=== PATIENT | male | born 1985 | race Caucasian/White ===

== ENCOUNTER 2017-01-19 10:36 | Inpatient (IN) | payer MEDICAID, OTHER, SELFPAY ==
[2017-01-19] MEDS ORDERED: ACETAMINOPHEN TAB 500 MG TAB PO STA (11:08)
--- NOTE | 2017-01-19 11:08 | ED ---
General Adult HPI - General Chief complaint: Psychiatric Symptoms Stated complaint: mental health Time Seen by Provider: 01/19/17 10:45 Source: patient, RN notes reviewed Mode of arrival: wheelchair Limitations: no limitations - History of Present Illness Initial comments: This is a 31-year-old male who presents to the emergency department with his mother. Mother brought him in today because he is aching outlandish comments. Patient states she's the principal feeds patient states that the devil is after him and he is very animated in his explanations jumping off the bed and lying on the floor. Patient states he only came in to prove to his mother that he is not crazy and that he is indeed Manuel states. Patient states he's been cleaned and cleansed of all problems. Patient denies any physical complaints. Patient states he's to have neck pain and now he doesn't. Patient states he doesn't take the flu shot because he doesn't need it because he has been chosen. - Related Data Home Medications Medication Instructions Recorded Confirmed No Known Home Medications [No 01/19/17 01/19/17 Known Home Medications] Allergies Allergy/AdvReac Type Severity Reaction Status Date / Time No Known Allergies Allergy Verified 01/19/17 11:21 Review of Systems ROS Statement: Those systems with pertinent positive or pertinent negative responses have been documented in the HPI. ROS Other: All systems not noted in ROS Statement are negative. Past Medical History Past Medical History: No Reported History History of Any Multi-Drug Resistant Organisms: None Reported Past Surgical History: No Surgical Hx Reported Past Psychological History: No Psychological Hx Reported Smoking Status: Current every day smoker Past Alcohol Use History: Occasional Past Drug Use History: None Reported, Cocaine, Heroin, Marijuana General Exam - General Exam Comments Initial Comments: GENERAL: Patient is well-developed and well-nourished. Patient is nontoxic and well- hydrated and is in no acute distress. ENT: Neck is soft and supple. No significant lymphadenopathy is noted. Oropharynx is clear. Moist mucous membranes. Neck has full range of motion without eliciting any pain. There is no thyroid enlargement and no masses were felt. EYES: The sclera were anicteric and conjunctiva were pink and moist. Extraocular movements were intact and pupils were equal round and reactive to light. Eyelids were unremarkable. PULMONARY: Unlabored respirations. Good breath sounds bilaterally. No audible rales rhonchi or wheezing was noted. CARDIOVASCULAR: There is a regular rate and rhythm without any murmurs gallops or rubs. Femoral pulses are equal bilaterally ABDOMEN: Soft and nontender with normal bowel sounds. No palpable organomegaly was noted. There is no palpable pulsatile mass. SKIN: Skin is clear with no lesions or rashes and otherwise unremarkable. NEUROLOGIC: Patient is alert and oriented x3. Cranial nerves II through XII are grossly intact. Motor and sensory are also intact. Normal speech, volume and content. Symmetrical smile. MUSCULOSKELETAL: Normal extremities with adequate strength and full range of motion. No lower extremity swelling or edema. No calf tenderness. LYMPHATICS: No significant lymphadenopathy is noted PSYCHIATRIC: Patient is not suicidal or homicidal however he is psychotic and is very delusional at this time Limitations: no limitations Course Vital Signs 01/19/17 01/19/17 10:45 11:26 Temperature 100.8 F H 100.9 F H Pulse Rate 107 H Respiratory 18 Rate Blood Pressure 142/87 O2 Sat by Pulse 97 Oximetry Medical Decision Making - Lab Data Lab Results 01/19/17 01/19/17 Range/Units 11:00 11:05 Urine Opiates Screen Not Detected (NotDetected) Ur Oxycodone Screen Not Detected (NotDetected) Urine Methadone Screen Not Detected (NotDetected) Ur Propoxyphene Screen Not Detected (NotDetected) Ur Barbiturates Screen Not Detected (NotDetected) U Tricyclic Antidepress Not Detected (NotDetected) Ur Phencyclidine Scrn Not Detected (NotDetected) Ur Amphetamines Screen Not Detected (NotDetected) U Methamphetamines Scrn Not Detected (NotDetected) U Benzodiazepines Scrn Not Detected (NotDetected) Urine Cocaine Screen Not Detected (NotDetected) U Marijuana (THC) Screen Detected H (NotDetected) Influenza Type A RNA Not Detected (Not Detectd) Influenza Type B (PCR) Not Detected (Not Detectd) Disposition Clinical Impression: Acute psychosis Disposition: ADMITTED IP TO THIS [facility] Time of Disposition: 12:41
[2017-01-19] MEDS ORDERED: ACETAMINOPHEN TAB 325 MG TAB PO PRN (16:01)
[2017-01-19] MEDS ORDERED: ZIPRASIDONE 20 MG VIAL IM PRN (16:01)
[2017-01-19] MEDS ORDERED: MAG HYDROX/AL HYDROX/SIMETH 30 ML CUP PO PRN (16:01)
[2017-01-19] MEDS ORDERED: LORazepam 1 MG TAB PO PRN (16:06)
[2017-01-19] MEDS ORDERED: LORazepam 2 MG/ML SYRINGE IM PRN (16:06)
[2017-01-20 08:31] LABS: Basophils # (A) 0.1 k/uL (0-0.2); Basophils % (A) 1 %; CH 30.6; CHCM 33.8; Eosinophils # (A) 0.1 k/uL (0-0.7); Eosinophils % (A) 1 %; HCT 48.2 % (39.0-53.0); HDW 2.14; HGB 16.3 gm/dL (13.0-17.5); Luc # (Auto) 0.28; Luc % (Auto) 4; Lymphocytes # (A) 1.8 k/uL (1.0-4.8); Lymphocytes % (A) 27 %; MCH 30.6 pg (25.0-35.0); MCHC 33.7 g/dL (31.0-37.0); MCV 90.7 fL (80.0-100.0); Mean Platelet Volume 7.2; Monocytes # (A) 0.7 k/uL (0-1.0); Monocytes % (A) 10 %; Neutrophils # (A) 3.7 k/uL (1.3-7.7); Neutrophils % (A) 56 %; RBC 5.32 m/uL (4.30-5.90); RDW 12.5 % (11.5-15.5); WBC 6.6 k/uL (3.8-10.6); WBC (Perox) 6.22
[2017-01-20 08:39] LABS: ALT 29 U/L (21-72); AST 30 U/L (17-59); Alkaline Phosphatase 51 U/L (38-126); Anion Gap 9 mmol/L; Blood Urea Nitrogen 11 mg/dL (9-20); Carbon Dioxide 31 mmol/L (22-30); Chloride 103 mmol/L (98-107); Glucose 116 mg/dL (74-99); Non-African American GFR(MDRD) >60 (>60 ml/min/1.73 sqM); Potassium 5.5 mmol/L (3.5-5.1); Sodium 143 mmol/L (137-145); Total Bilirubin 1.4 mg/dL (0.2-1.3); Total Protein 7.7 g/dL (6.3-8.2)
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
--- NOTE | 2017-01-20 14:59 | P.CONS ---
History of Present Illness - Reason for Consult Consult date: 01/20/17 Medical management Requesting physician: Debby Sorensen - Chief Complaint Psychiatric symptoms - History of Present Illness Patient is a 31-year-old white male, patient of Dr. Chung in the outpatient setting, with no significant medical history. Patient was brought into the emergency department by his mother for irrational behavior. Urinalysis with evidence of marijuana. Potassium 5.5 on arrival. Patient did have a temperature of 100.8 in the emergency department with a heart rate of 107. Influenza A and negative. Patient was admitted to the psychiatric unit for evaluation and treatment. Upon examination, patient denies chills, shortness of breath, cough, chest pain, abdominal pain, numbness tingling, leg swelling, diarrhea or constipation, urinary problems. Patient denies musculoskeletal problems. No evidence of leukocytosis. Past Medical History Past Medical History: No Reported History Additional Past Medical History / Comment(s): History of heart palpitations. History of Any Multi-Drug Resistant Organisms: None Reported Past Surgical History: No Surgical Hx Reported Past Anesthesia/Blood Transfusion Reactions: No Reported Reaction Past Psychological History: No Psychological Hx Reported Smoking Status: Current some day smoker Past Alcohol Use History: Daily Additional Past Alcohol Use History / Comment(s): Pt. reports he drinks 2-3 beers a day. His last drink was 01/18/17. Past Drug Use History: Cocaine, Heroin, IV Drug Use, Marijuana, Methamphetamine , Opiates, Prescription Drug Abuse Additional Drug Use History / Comment(s): Pt. admits to occasional marijuana use. Pt. admits to a history of polysubstance abuse. - Past Family History Father History Unknown: Yes Mother Family Medical History: Diabetes Mellitus, Hyperlipidemia Brother(s) Additional Family Medical History / Comment(s): Drug addiction. Medications and Allergies Home Medications Medication Instructions Recorded Confirmed Type No Known Home Medications [No 01/19/17 01/19/17 History Known Home Medications] Allergies Allergy/AdvReac Type Severity Reaction Status Date / Time No Known Allergies Allergy Verified 01/19/17 16:49 Physical Exam Vitals: Vital Signs Temp Pulse Pulse Pulse Resp BP BP 01/20/17 06:15 98.2 F 83 16 139/67 01/19/17 16:31 97.9 F 77 20 01/19/17 16:00 98.8 F 91 16 127/72 BP Pulse Ox 01/20/17 06:15 01/19/17 16:31 115/73 97 01/19/17 16:00 98 Intake and Output 01/19/17 01/20/17 01/20/17 22:59 06:59 14:59 Other: Weight 65 kg GENERAL: Pt awake and alert, well-nourished, appears restless. HEAD: Atraumatic, normocephalic. EYES: Pupils equal and round. Sclera anicteric, conjunctiva are normal. ENT: Oropharynx clear without exudates. Moist mucous membranes. NECK:Normal range of motion, supple without lymphadenopathy. LUNGS: Breath sounds clear to auscultation bilaterally. No wheezes, rales, or rhonchi. HEART: Heart S1, S2, no S3 or S4. Regular rate and rhythm. No murmurs, rubs or gallops. ABDOMEN: Soft, nontender, nondistended, normoactive bowel sounds. No guarding, no rebound. EXTREMITIES: Palpable peripheral pulses. No edema. No calf tenderness. NEUROLOGICAL: Pt oriented x 3. No focal deficits. Strength and sensation grossly intact. PSYCH: Poor insight. Poor judgment. SKIN: Warm, dry, intact. Normal turgor. No rashes or lesions. Results CBC & Chem 7: 01/20/17 07:54 01/20/17 07:54 Labs: Abnormal Lab Results - Last 24 Hours (Table) 01/20/17 Range/Units 07:54 Potassium 5.5 H (3.5-5.1) mmol/L Carbon Dioxide 31 H (22-30) mmol/L Glucose 116 H (74-99) mg/dL Total Bilirubin 1.4 H (0.2-1.3) mg/dL Assessment and Plan Plan: Impression and plan: 1. Psychotic disorder. Patient has been admitted to the psychiatric unit for further evaluation under the care of a psychiatrist. 2. Hyperkalemia. We'll recheck potassium in a.m. 3. Marijuana use. 4. History of polysubstance abuse. 5. Nicotine dependence. Smoking cessation encouraged. 6. History of alcohol use with reported drinking of 2-3 beers a day. Will check BMP in a.m. Patient to follow-up with Dr. Chung in the office 1 week after discharge. The above impression and plan have been discussed and directed by Dr. Salas. Jerilyn HERBERT acting as scribe for Dr. Salas.
[2017-01-21 10:00] LABS: Anion Gap 13 mmol/L; Blood Urea Nitrogen 15 mg/dL (9-20); Calcium 9.9 mg/dL (8.4-10.2); Carbon Dioxide 29 mmol/L (22-30); Chloride 101 mmol/L (98-107); Glucose 108 mg/dL (74-99); Non-African American GFR(MDRD) >60 (>60 ml/min/1.73 sqM); Potassium 4.9 mmol/L (3.5-5.1); Sodium 143 mmol/L (137-145)
--- NOTE | 2017-01-21 11:30 | P.PN ---
Progress Note - Text SUBJECTIVE: I reviewed the medical record, interviewed Mr. Mac and discuss his treatment and treatment plan during team meeting. He presented to unit voluntarily with signs and symptoms consistent with hypomania. He denied problems or concerns. He stated he spoke with his mother and his girlfriend about his behavior and my recommendation for lithium. He alleges his mother is not concerned about his behavior and supports his decision not to accept a psychotropic medication. His understanding of his illness is that he was speaking too loud and not listening to other people particularly his mother and his girlfriend. OBJECTIVE: He presented as a casually groomed 31-year-old male who was pleasant on approach. He maintained eye contact and attended to the interview. He had no distinguishing features or prominent physical abnormalities. He had a bright facial expression. He was not agitated or restless; he did not gesticulate or act out his story as he had yesterday. His speech was spontaneous with slight increase in rhythm and amount. He did not demonstrate pressured speech or flight of ideas. His affect was bright, stable and appropriate. He denied suicidal ideation or wishes. He denied homicidal ideation. He denied feelings of hopelessness, helplessness or worthlessness. He did not express ideas reference or paranoid ideation. He was not religiously preoccupied and did not voluntarily talk about scientologist or anglican topics. His thinking was concrete but her associations were coherent and logical. He denied hallucinations and did not appear to be responding to internal stimuli. He slept 4.5 hours yesterday after receiving 1 mg of Ativan. He is demonstrated no agitation or episodes of behavioral dyscontrol. ASSESSMENT: He appears less hypomanic than on admission. He has no understanding of his mental illness or the need for treatment. He currently does not appear to meet judicial criteria for involuntary hospitalization. PLAN: Continue inpatient hospitalization determine if his apparent recovery is more than temporary. If his rolo/hypomania worsens to where he requires administration of IM medications, then asked his mother to complete a Petition and initiate the process for involuntary hospitalization. Otherwise, consider discharging him on 01/22/2017 with recommendation for follow-up at [facility].
--- NOTE | 2017-01-22 11:13 | P.DS ---
Providers Date of admission: 01/19/17 15:57 Attending physician: Romel Zepeda MD Consults: 01/19/17 16:01 Consult Physician Routine Consulting Provider: Demetrio Salas Jr Consult Reason/Comments: H & P and medical management Do you want consulting provider notified?: Yes Primary care physician: Stated None - Discharge Diagnosis(es) (1) Bipolar disorder, most recent episode hypomanic Current Visit: Yes Status: Acute (2) Opioid use disorder, moderate, in early remission Current Visit: Yes Status: Chronic Priority: Low (3) Hallucinogen abuse Current Visit: Yes Status: Chronic Priority: Medium Hospital Course: Mr. Mac is a 31-year-old single male who presented to the psychiatric unit voluntarily at the behest of his mother.. He was unable to provide a coherent reason for hospitalization. When I asked about the issues that brought him to the hospital he began talking about his relationship he had with a girlfriend. On further inquiry this incident occurred 7 years ago. He was lively and animated. On many occasions he acted out his story (he was talking about interaction with his girlfriend's or ex- girlfriend's children and began jumping up and down, squatting to the ground and eventually laid down on the ground). He gesticulated wildly with his hands. He was restless, grandiose and talked almost nonstop. He referred to "hearing voices" but when I asked question to clarify whether the experience represented true auditory hallucinations he backpedaled and alleged they were just thoughts. With his permission I called his mother. She stated that she slept last night for the first time in over a week. She stated they are a very spiritual family but he has taken spirituality to the extreme. "He takes after his father. ... I left (his father) when Caio was quite young." She believes that Caio's "mental illness came out" at the same age as his father's. "It's the same thing. ... He speaks in parables. He doesn't hear what others say." She was quite distressed and sobbed on the telephone. She stated that he has been calling her a liar and a thief. He told her that "the wolves" are coming to get her. She stated that his friends have been calling her concerned about his behavior. "He comes home and freaks out." He leaves her house then goes to his girlfriend's. She stated that he "freaked out" at his girlfriend's friend' s house. I asked her what she meant by "freaks out" and she talked about his restlessness, paranoia and religiosity. She stated that he's been talking about "devils" and "minions". He believes that demons are controlling her mind. He talks about being "thrown to the demons." His mother stated that he had not slept for 4 days. She noticed a change in his behavior about 2 weeks prior to admission. She talked about having become involved with drugs and believes that the drugs "brought it out in him." He accused her of stealing his drugs. She believes she was using LSD "blotter acid". After my conversation with his mother we met to talk about beginning a psychotropic medication. He became distressed and insists that they come to his room and "read what is on the wall. .. I did not put it there but I want you to read it " I accompanied him to his room and around the mirror someone had written their feelings about having been "forced" to take an injection of medication. He stated that he will not be "forced" to take medications. I explained that only a airline managerial supervisor's order would allow us to administer medication against a patient's wishes. He replied "just do it. ... Let's go to court." He stated that he has used "every drug imaginable" including alcohol, marijuana , LSD, mushrooms, opioid pain medications, cocaine, crack cocaine, methamphetamine and dextromethorphan. He has insufflated and injected heroin IV. He alleged last time he used heroin was "a while ago". His urine drug screen was positive only for marijuana. He received substance abuse treatment while he was in [facility]. We admitted him voluntarily to the psychiatric unit under the care of this creative services writer. We provided a biopsychosocial assessment. The project consultant jigger crown pouncing machine operator completed the initial physical exam and medical history. The jigger crown pouncing machine operator diagnosis included hyperkalemia, marijuana abuse, polysubstance abuse, nicotine dependence and history of alcohol use. The admission potassium was 5.5 and repeat the following day was 4.9. He was hyperverbal throughout the hospitalization. He showed decreased need for sleep. He participated appropriately in therapeutic groups and activity. He did not have episodes of behavioral dyscontrol requiring administration of IM or by mouth medications. We discussed treatment with a mood stabilizing medication such as lithium or second generation antipsychotic. He refused to consider a psychotropic medication. He did not meet criteria for involuntary hospitalization. We discharged from with recommendation of follow-up with [facility]. Patient Condition at Discharge: Stable Plan - Discharge Summary Discharge Medication List No Known Home Medications [No Known Home Medications] 01/19/17 [History] Follow up Appointment(s)/Referral(s): None,Stated [Primary Care Provider] - 1-2 days Discharge Disposition: HOME SELF-CARE
[2017-01-23] MEDS: MAGNESIUM HYDROXIDE 2,400 MG/10 ML CUP PO PRN (00:56)
--- NOTE | 2017-01-23 11:10 | P.PN ---
Progress Note - Text SUBJECTIVE: I reviewed the medical record, interviewed Mr. Mac and discuss his treatment and treatment plan during team meeting. He presented to unit voluntarily with signs and symptoms consistent with hypomania. He refused to leave the unit yesterday evening.. He told staff that he "did not feel safe"at home. Today he stated that he feels much better and is ready to "go home". I asked why he did not feel safe yesterday. He talked about needing to have his own place to live. He was concerned about "urges inside me ". On further questioning he talked about his friend's girlfriend. He believes that his friend's girlfriend is more attracted to him that his friend etc. He denied having thoughts of or suicide. He denied homicidal thoughts. He denied experiencing auditory or visual hallucinations. He denied feeling suspicious or paranoid. He denied ideas of reference, thought insertion, thought broadcasting or thought control. We once again talked about treatment of his bipolar illness. He again declined my recommendations and was not in reviewing the patient information sheets on options such as lithium, Depakote, Lamictal, olanzapine or lurasidone. OBJECTIVE: He presented as a casually groomed 31-year-old male who was pleasant on approach. He maintained eye contact and attended to the interview. He had no distinguishing features or prominent physical abnormalities. He had a bright facial expression. He was not agitated or restless; he did not gesticulate or act out his story as he had yesterday. His speech was spontaneous with slight increase in rhythm and amount. He did not demonstrate pressured speech or flight of ideas. His affect was bright, stable and appropriate. He denied feelings of hopelessness, helplessness or worthlessness. He did not express ideas reference or paranoid ideation. He was not religiously preoccupied and did not voluntarily talk about spiritism or alevism topics. His thinking was concrete but her associations were coherent and logical. He denied hallucinations and did not appear to be responding to internal stimuli. ASSESSMENT: He appears less hypomanic than on admission. He has no understanding of his mental illness or the need for treatment. He currently does not meet judicial criteria for involuntary hospitalization. PLAN: Discharge him home with follow-up at [facility].
--- NOTE | 2017-01-24 09:36 | P.PN ---
Progress Note - Text Interval history: The patient is found in the hallway he follows me to an interview room. The patient was admitted with symptoms of rolo with psychosis. The patient is refusing medication in the form of a mood stabilizer. A petition and initial clinical certificate has been completed. In the session the patient is clearly demonstrating symptoms of rolo he also verbalizes spontaneously delusional beliefs. He has reported auditory hallucinations while here. He states IM suggesting he be medicated to "Zombie- fy him and cover up the truth". Numerous times throughout the session he describes coincidences that he notices any believes that these are divine intervention. Oftentimes in our session he describes things in a jewish context. Initially during our session he is against using medication then he seemed to be agreeable to trialing Depakote and then abruptly stated "I want to talk to the car head liner installer". He is also demanding to see a asbestos wire finisher immediately. Mental status exam: The patient is a thin disheveled male appearing his stated age. His hair is not combed, he does have a mild body odor. He is dressed in a hospital gown. He has ongoing pressured speech he demonstrates tangential thinking with evidence of flight of ideas. He gets up several times during the session and paces about the room he demonstrates increased psychomotor activity. Oftentimes he demonstrates a euphoric affect with exaggerated smiling and laughter. He has been endorsing auditory hallucinations. He is endorsing no command auditory hallucinations. He describes no acute suicidal or homicidal ideation. He is trying to minimize statements he is made during the admission and current symptoms. Insight and judgment are impaired. He is not demonstrating consistent decision making and subsequent judgment. Plan: The patient does require continued hospitalization. I will initiate Depakote ER 1000 mg at bedtime. I did describe to the patient the potential benefits and side effects of this medication. We will monitor compliance. I will complete a clinical certificate. Because of the presence of psychotic symptoms I would characterize his symptoms as being manic. He may have a chronic history of experiencing hallucinations but there are active paranoid and persecutory thoughts. He is encouraged to participate in the milieu we will monitor him for safety.
[2017-01-24] MEDS: DIVALPROEX ER 500 MG TAB.ER.24H PO SCH (21:34)
--- NOTE | 2017-01-25 12:13 | P.PN ---
Progress Note - Text Interval history: The patient is found in group he follows me to an interview room. He did take the Depakote ER 1000 mg at bedtime last evening. He reports he slept throughout the night approximately getting 6 hours. Staff recorded he slept 4 hours. He is reporting no side effects from the Depakote yet. He did not feel overly tired this morning. He reports having a positive visit with his mother last evening. He reviewed the court paperwork and tried to address statements that we made and offer some rationalization for each. He does continue to be religiously preoccupied in that most statements he makes are made in a spiritism context. He tries to provide a biblical context for what he meant when he talked about murder. Mental status exam: The patient is alert he is dressed in his own clothing he is wearing a hooded sweatshirt with his amos up. Eye contact is appropriate affect remains euphoric. He is cooperative. Speech is mildly pressured. Thought content is overly inclusive when trying to make a point. He is still circumstantial he can be tangential at times. He refers to having paranoid thoughts stating they aren't always there but does not specify further. No verbal or physical aggressiveness is demonstrated. He is reporting no suicidal or homicidal ideation intent or plan. Insight and judgment impaired. Plan: The patient is encouraged to continue complying with the Depakote ER. He is encouraged to continue attending groups we will monitor him for safety. Vital signs reviewed. Dr. Zepeda will resume care of this patient starting tomorrow.
[2017-01-25] MEDS: DIVALPROEX ER 500 MG TAB.ER.24H PO SCH (21:13)
--- NOTE | 2017-01-26 15:36 | P.PN ---
Progress Note - Text SUBJECTIVE: I reviewed the medical record, interviewed Mr. Mac and discuss his treatment and treatment plan during team meeting. He stated that he agreed to take the Depakote yesterday because he did not want to "disappointed" the doctor. He stated that he "pretended" to take the dose yesterday then "spitted it out of the toilet." He refused to take the dose this morning. He again stated that he does not require psychiatric medications. He talked about his brother who had been prescribed psychotropic medications; "no medications help my brother." I attempted to engage him in a discussion about the benefits of a mood stabilizer such as Depakote. His response was that he is happy with his current "happy and bubbly" self. He wishes to proceed with a probate hearing to demonstrate to the per diem physical therapist that he does not require treatment with psychiatric medications. OBJECTIVE: He presented as a disheveled appearing 31-year-old male who was pleasant on approach. He maintained eye contact and appeared to attend to interview. He had a bright facial expression. He showed slight indicate increase in psychomotor activity but no abnormal movements. Speech was spontaneous and pressured. His affect was elevated and at times inappropriate. He denied thoughts of self-harm. He denied homicidal ideation. He denied depressive cognitions. He did not express inflated self-esteem or self worth. He was religiously preoccupied but did not express religiously themed or paranoid delusional beliefs. His thinking was abstract. He did not demonstrate clang associations or neologisms. He denied hallucinations and did not appear to be responding to internal stimuli. ASSESSMENT: He appears moderately to severely mentally ill and minimally change from admission. He continues to show signs and symptoms of hypomania. PLAN: Continue with inpatient psychiatric hospitalization due to persistent symptoms of hypomania and refusal of psychiatric treatment. Petition and supporting documents admitted to probate court. Probate hearing pending. Encouraged continued participation in therapeutic groups and activities. Evaluate clinical status and response to treatment daily basis. Continue to encourage a trial of a mood stabilizing medication.
[2017-01-26] MEDS: DIVALPROEX ER 500 MG TAB.ER.24H PO SCH (21:29)
[2017-01-27 11:30] LABS: Amorphous Sediment,Urine Moderate /hpf; Appearance,Urine Turbid (Clear); Bilirubin,Urine Negative (Negative); Glucose,Urine (UA) Negative (Negative); Ketones,Urine Negative (Negative); Leukocyte Esterase,Urine Negative (Negative); Nitrite,Urine Negative (Negative); Particle Count 27252; Protein,Urine Trace (Negative); Specific Gravity,Urine 1.024 (1.001-1.035); UA Billing (MACRO vs. MICRO) MICRO; Urobilinogen,Urine <2.0 mg/dL (<2.0)
--- NOTE | 2017-01-27 14:33 | P.PN ---
Progress Note - Text SUBJECTIVE: I reviewed the medical record, interviewed Mr. Mac and discuss his treatment and treatment plan during team meeting. He met with his court appointed sports attorney and declined to deferr the probate hearing. He talked about his use of LSD. Apparently, he was using LSD heavily for about 2 weeks prior to admission. He talked about using anywhere from 5 to 11 "hits" of LSD over a two day period then once to twice per week until his admission. He asked if I thought the problems that he had with his mood and thinking might be related to his LSD use. He alleged that he had used LSD one other time when he was a senior in high school. He denied feeling paranoid or suspicious. He denied psychotic symptoms such as auditory or visual hallucinations, ideas reference, thought insertion, thought broadcasting or thought control. He continues to denied need for psychotropic medications again stating "they never helped my brother." OBJECTIVE: He presented as a slightly disheveled appearing 31-year-old male who was pleasant on approach. He maintained eye contact and attended to the interview. He had a bright facial expression. He showed no abnormality of psychomotor activity. He was not agitated or restless. His speech was spontaneous with slight increase in rate and rhythm. His speech was pressured but he did not display flight of ideas. He denied suicidal ideation or wishes. He denied depressive cognitions such as hopelessness, helplessness and worthlessness. He did not express ideas reference or paranoid ideation. His thinking was abstract and her associations was coherent and logical. He denied hallucinations and did not appear to be responding to internal stimuli. ASSESSMENT: He appears to be moderately mentally ill and moderately improved from admission. PLAN: Continue inpatient psychiatric hospitalization pending the probate hearing. Continue to talk about treatment with a mood stabilizing medication. Encourage participation in therapeutic groups and activities. Evaluate clinical status response to treatment daily basis.
[2017-01-27] MEDS: DIVALPROEX ER 500 MG TAB.ER.24H PO SCH (21:23)
--- NOTE | 2017-01-28 14:15 | P.PN ---
Progress Note - Text SUBJECTIVE: I reviewed the medical record, interviewed Mr. Mac and discuss his treatment and treatment plan during team meeting. He brought a copy of his Petition and Clinical Certificates to the interview. He reviewed the documents in detail commenting and critiquing the statements on the documents. He maintains that he was not doing well when he initially presented to the unit but recovered. He continues to deny the need for mood stabilizing medications. He denied feeling paranoid or suspicious. He denied psychotic symptoms such as auditory or visual hallucinations, ideas reference, thought insertion, thought broadcasting or thought control. He continues to denied need for psychotropic medications again stating "they never helped my brother." OBJECTIVE: He presented as a slightly disheveled appearing 31-year-old male who was pleasant on approach. He maintained eye contact and attended to the interview. He had a bright almost alienated facial expression. He showed no abnormality of psychomotor activity. He was not agitated or restless. His speech was spontaneous with slight increase in rate and rhythm. His speech was pressured but he did not display flight of ideas. He denied suicidal ideation or wishes. He denied depressive cognitions such as hopelessness, helplessness and worthlessness. He did not express ideas reference or paranoid ideation. His thinking was abstract and her associations was coherent and logical. He denied hallucinations and did not appear to be responding to internal stimuli. ASSESSMENT: He appears to be moderately mentally ill and moderately improved from admission. PLAN: Continue inpatient psychiatric hospitalization pending the probate hearing. Continue to talk about treatment with a mood stabilizing medication. Encourage participation in therapeutic groups and activities. Evaluate clinical status response to treatment daily basis.
[2017-01-28] MEDS: DIVALPROEX ER 500 MG TAB.ER.24H PO SCH (21:47)
--- NOTE | 2017-01-29 12:51 | P.PN ---
Progress Note - Text SUBJECTIVE: I reviewed the medical record, interviewed Mr. Mac and discuss his treatment and treatment plan during team meeting. He came to my office several times during the day with complaints related to perceived violation of his rights. On the first visit he reviewed page by page the Recipient Right's Booklet and highlighted sections where he believes his rights have been violated. On another visit he demanded a copy of his medical records and a different visit he demanded that his mother be allowed to visit with him at any time because she is concerned about his legal status. He stated that he will be demanding a jury trial. OBJECTIVE: He presented as a slightly disheveled appearing 31-year-old male who was angry and irritable. He maintained eye contact and attended to the interview. He had a angry facial expression. He showed no abnormality of psychomotor activity. He was not agitated or restless. His speech was pressured but he did not display flight of ideas. He denied suicidal ideation or wishes. He denied depressive cognitions such as hopelessness, helplessness and worthlessness. He was suspicious and perseverated on the belief that his rights have been violated. His thinking was abstract and her associations was coherent and logical. He denied hallucinations and did not appear to be responding to internal stimuli. ASSESSMENT: He appears to be severely mentally ill and minimally improved from admission. PLAN: Continue inpatient psychiatric hospitalization pending the probate hearing. He continues to deny the need for psychiatric treatment. Continue to talk about treatment with a mood stabilizing medication. Encourage participation in therapeutic groups and activities. Evaluate clinical status response to treatment daily basis.
[2017-01-29] MEDS: DIVALPROEX ER 500 MG TAB.ER.24H PO SCH (20:16)
--- NOTE | 2017-01-30 12:42 | P.PN ---
Progress Note - Text SUBJECTIVE: I reviewed the medical record, interviewed Mr. Mac and discuss his treatment and treatment plan during team meeting. He denied problems other than "you forcing me to take hard drugs." He is angry at his child protective investigator for not informing of his rights including a second opinion and a jury trial. He would not discuss treatment of his rolo. OBJECTIVE: He presented as a slightly disheveled appearing 31-year-old male who was angry and irritable. He maintained eye contact and attended to the interview. He had a bright facial expression. He showed no abnormality of psychomotor activity. He was not agitated or restless. His speech was pressured but he did not display flight of ideas. He denied suicidal ideation or wishes. He denied depressive cognitions such as hopelessness, helplessness and worthlessness. He was suspicious and perseverated on the belief that his rights have been violated. His thinking was abstract and her associations was coherent and logical. He denied hallucinations and did not appear to be responding to internal stimuli. ASSESSMENT: He appears to be severely mentally ill and minimally improved from admission. PLAN: Continue inpatient psychiatric hospitalization pending the probate hearing. He continues to deny the need for psychiatric treatment. Continue to talk about treatment with a mood stabilizing medication. Encourage participation in therapeutic groups and activities. Evaluate clinical status response to treatment daily basis.
[2017-01-30] MEDS: MAGNESIUM HYDROXIDE 2,400 MG/10 ML CUP PO PRN (18:23)
[2017-01-30] MEDS: DIVALPROEX ER 500 MG TAB.ER.24H PO SCH (20:16)
--- NOTE | 2017-01-31 15:29 | P.PN ---
Progress Note - Text Interval history: Patient seen in [facility] today for Dr. Zepeda. He makes reference to not needing and not taking psychotropic medications. He is currently being prescribed Depakote ER. He brings in his treatment plan which he goes over some of as well as goes over multiple concerns of his rights. Makes reference to a court hearing this coming Thursday. He makes reference to concerns about protective services being called due to concerns of the care of children in the home. Mental status exam: He is alert and cooperative with the interview. His speech is fluent and rapid with a pressured quality. He denies any thoughts of harm to self or others. He does not verbalize any hallucinations. He does not show any significant degree of agitation. Makes several references to medications being forced on him and concerns about his rights. He describes that his mood was doing well until having concerns about protective services being involved. Plan: We'll continue to cover this patient for Dr. Zepeda through the weekend. Discussed with him that we can monitor closely on the inpatient unit regarding any side effects of his prescribed psychotropic medication. He does not seem interested at this time in terms of starting the medication. We'll continue to monitor for any psychiatric symptoms and monitor for any compliance of medication.
[2017-01-31] MEDS: DIVALPROEX ER 500 MG TAB.ER.24H PO SCH (21:01)
[2017-02-01] MEDS: MAGNESIUM HYDROXIDE 2,400 MG/10 ML CUP PO PRN (15:11)
--- NOTE | 2017-02-01 16:48 | P.PN ---
Progress Note - Text Interval history: Patient is seen in cross coverage today again for Dr. Zepeda. He reports that he slept well last night and he is eating well. He does describe some issues with constipation, he has been taking self milk of magnesia. I did discuss with him the option of having the medical follow back up regarding issues of constipation and he describes that he will monitor it and perhaps take the milk of magnesia more consistently if he is having any difficulties. He describes today that he is no longer concerned about the issue regarding protective services. He states that these are not his children and he made a call yesterday and that the children he was referring to are being taken care of. Mental status exam: He is alert and cooperative with the interview. His speech is fluent, he seems to describe his mood is doing well. His affect does show range. He denies any thoughts of harm to self or others. He denies any hallucinations. She does not show any agitation. Plan: Dr. Zepeda will resume care this patient starting tomorrow. Monitor for any medication compliance, he does have upcoming court hearing regarding treatment.
[2017-02-01] MEDS: DIVALPROEX ER 500 MG TAB.ER.24H PO SCH (20:37)
--- NOTE | 2017-02-02 12:57 | P.PN ---
Progress Note - Text SUBJECTIVE: I reviewed the medical record, interviewed Mr. Mac and discuss his treatment and treatment plan during team meeting. He refused to sit for the interview. He accused me of "abusing him" and not "respecting" his rights. He stated there is "nothing for us to talk about" and left the office. OBJECTIVE: He presented as a slightly disheveled appearing 31-year-old male who was angry and irritable. He maintained eye contact and attended to the interview. He had a angry facial expression. He showed no abnormality of psychomotor activity. He would not sit for the interview. His speech was pressured but he did not display flight of ideas. He denied suicidal ideation or wishes. He denied depressive cognitions such as hopelessness, helplessness and worthlessness. He was suspicious and perseverated on the belief that his rights have been violated. His thinking was abstract and her associations was coherent and logical. He denied hallucinations and did not appear to be responding to internal stimuli. He slept 7 hours last night. He continues to refuse the Depakote. ASSESSMENT: He is angry and irritable. Overall, he appears to be moderately mentally ill and minimally improved from admission. PLAN: Continue inpatient psychiatric hospitalization pending the probate hearing. He continues to deny the need for psychiatric treatment. Continue to talk about treatment with a mood stabilizing medication. Encourage participation in therapeutic groups and activities. Evaluate clinical status response to treatment daily basis.
[2017-02-02] MEDS: DIVALPROEX ER 500 MG TAB.ER.24H PO SCH (19:25)
--- NOTE | 2017-02-03 15:22 | P.PN ---
Progress Note - Text SUBJECTIVE: I reviewed the medical record, interviewed Mr. Mac and discuss his treatment and treatment plan during team meeting. He refused to sit for the interview. OBJECTIVE: He presented as a slightly disheveled appearing 31-year-old male who was angry and irritable. He maintained eye contact and attended to the interview. He had a angry facial expression. He showed no abnormality of psychomotor activity. He would not sit for the interview. His speech was pressured but he did not display flight of ideas. He denied suicidal ideation or wishes. He denied depressive cognitions such as hopelessness, helplessness and worthlessness. He was suspicious and perseverated on the belief that his rights have been violated. His thinking was abstract and her associations was coherent and logical. He denied hallucinations and did not appear to be responding to internal stimuli. On his goal sheet this morning he broke that he was having violent thoughts towards his psychiatrist. He added that he would not act on these thoughts. He continues to refuse the Depakote. ASSESSMENT: He means angry and irritable. Overall, he appears to be moderately mentally ill and minimally improved from admission. PLAN: His court hearing is at 3:30 PM this afternoon; disposition pending a probate hearing. He continues to deny the need for psychiatric treatment. Continue to talk about treatment with a mood stabilizing medication. Encourage participation in therapeutic groups and activities. Evaluate clinical status response to treatment daily basis.
[2017-02-03] MEDS: DIVALPROEX ER 500 MG TAB.ER.24H PO SCH (21:30)
--- NOTE | 2017-02-04 14:11 | P.PN ---
Progress Note - Text SUBJECTIVE: I reviewed the medical record, interviewed Mr. Mac and discuss his treatment and treatment plan during team meeting. Earlier today he greeted me and addressed me as "Dr. Tariq" (apparently referring to the infamous [facility] physician. Moses Johns). He was euphoric and hyperverbal. He talked non- stop about his treatment plan item by item and page by page. He had a counter argument for every problem identified in the plan. We talked about his court hearing yesterday and his request for independent examination. He understands that his hearing was postponed to March 03 and that he will remain in the hospital. He replied that he has no problem remaining in the hospital. He enjoys himself here and if he had the opportunity he would remain here. "Why leave here? I don't have to work. I don't have to shop. I don't have to clean her help out around the house. ... 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 He talked constantly. He showed no abnormality of psychomotor activity. His speech was pressured and he displayed flight of ideas. He denied suicidal ideation or wishes. He denied feeling hopelessness, helplessness and worthlessness. He was not suspicious as perseverated about his treatment plan. His thinking was abstract but is thinking was not logical. He denied hallucinations and did not appear to be responding to internal stimuli. ASSESSMENT: He having signs and symptoms of hypomania. He has no insight or understanding of his illness or need for treatment. Overall, he appears to be moderately mentally ill and minimally improved from admission. PLAN: Continue inpatient hospitalization until his independent evaluation and court hearing. Continue to talk about treatment with a mood stabilizing medication. Encourage participation in therapeutic groups and activities. Evaluate clinical status response to treatment daily basis.
[2017-02-04] MEDS: DIVALPROEX ER 500 MG TAB.ER.24H PO SCH (21:10)
--- NOTE | 2017-02-05 12:00 | P.PN ---
Progress Note - Text SUBJECTIVE: I reviewed the medical record, interviewed Mr. Mac and discuss his treatment and treatment plan during team meeting. He complained that his court appointed personal injury attorney has not availed herself as much as she would like. He also complained that his rights have been violated. OBJECTIVE: He presented as a casually groomed 31-year-old male who was not euphoric. He showed no abnormality of psychomotor activity. His speech was not pressured and he did not display flight of ideas. His speech had normal rate, rhythm and volume. He denied suicidal ideation or wishes. His affect was slightly blunted but stable and appropriate. He denied feeling hopelessness, helplessness and worthlessness. He was not suspicious. He did not perseverate about his treatment plan for the violation of his "rights ". His thinking was abstract but is thinking was not logical. He denied hallucinations and did not appear to be responding to internal stimuli. ASSESSMENT: He did not appear to be hypomania. However he has no insight or understanding of his illness or need for treatment. Overall, he appears to be minimally mentally ill and much improved from admission. PLAN: Continue inpatient hospitalization until his independent evaluation and court hearing. Continue to talk about treatment with a mood stabilizing medication. Encourage participation in therapeutic groups and activities. Evaluate clinical status response to treatment daily basis.
[2017-02-05] MEDS: DIVALPROEX ER 500 MG TAB.ER.24H PO SCH (21:13)
--- NOTE | 2017-02-06 11:28 | P.PN ---
Progress Note - Text SUBJECTIVE: I reviewed the medical record, interviewed Mr. Mac and discuss his treatment and treatment plan during team meeting. "I apologize for my behavior. I don't mean to offend you. I've been feeling irritable. ... I still think you violated my rights." He is planning to call the psychologist for an independent evaluation as his attorney general requested during his probate hearing. OBJECTIVE: He presented as a casually groomed 31-year-old male who was euphoric. He showed no abnormality of psychomotor activity. His speech was not pressured and he did not display flight of ideas. His speech had increased rate, rhythm and volume. He denied suicidal ideation or wishes. His affect was elevated but stable and appropriate. He denied feeling hopelessness, helplessness and worthlessness. He was not suspicious. He did not perseverate about his treatment plan for the violation of his "rights". His thinking was abstract but is thinking was logical, coherent and goal directed. He denied hallucinations and did not appear to be responding to internal stimuli. ASSESSMENT: He appears moderately mentally ill and much improved from admission. However he has no insight or understanding of his illness or need for treatment. PLAN: Continue inpatient hospitalization until his independent evaluation and court hearing. Continue to talk about treatment with a mood stabilizing medication. Encourage participation in therapeutic groups and activities. Evaluate clinical status response to treatment daily basis.
[2017-02-06] MEDS: DIVALPROEX ER 500 MG TAB.ER.24H PO SCH (21:09)
--- NOTE | 2017-02-07 09:32 | P.PN ---
Progress Note - Text Interval history: Patient seen in cross coverage today for Dr. Zepeda. He makes reference to not needing and not taking psychotropic medications. He brings in his treatment plan which he goes over some of as well as goes over multiple concerns of his rights. Makes reference to court hearing and said "It not fair to go against two MD and one Master degree SW ,they testified that I am insane and need medication",patient said that he asked for independent evaluation . He was voodoo preoccupied and talked in detail about "G[employer] THE LAW",denies any current hallucination or idea of references,denies any sleeping or appetite problems Mental status exam: He is alert and cooperative with the interview. His speech is fluent and rapid with a pressured quality,circumstantial ,and some loose of association He denies any thoughts of harm to self or others. He does not verbalize any hallucinations. He does not show agitation Makes several references to medications being forced on him and concerns about his rights. Plan: We'll continue to cover this patient for Dr. Zepeda through the weekend. Discussed with him that we can monitor closely on the inpatient unit regarding medication. He does not seem interested at this time in terms of starting the medication. We'll continue to monitor for any psychiatric symptoms and monitor for any compliance of medication.
[2017-02-07] MEDS: DIVALPROEX ER 500 MG TAB.ER.24H PO SCH (21:26)
--- NOTE | 2017-02-08 12:40 | P.PN ---
Progress Note - Text Interval history: Patient seen in [facility] today for Dr. Zepeda. He makes reference to not needing and not taking psychotropic medications. He denies any current hallucination or idea of references,denies any sleeping or appetite problems.He stated that he met with Risa yesterday "It is my first time ,I am trying to ask her to be my witness when I go to hearing ,she does believe in God and in Miracle",when I asked him if she does not beleive in medication ,he replied "I need to find out this ,she will visit me again" Patient shared with me a drawing saying that "I am trying to spend constructive time ,it is good way to relax" Mental status exam: He is alert and cooperative with the interview. His speech is fluent and rapid with a pressured quality,circumstantial ,and some loose of association He denies any thoughts of harm to self or others. He does not verbalize any hallucinations. He does not show agitation Makes several references to medications being forced on him and concerns about his rights. Plan:. Discussed with him that we can monitor closely on the inpatient unit regarding medication. He does not seem interested at this time in terms of starting the medication. We'll continue to monitor for any psychiatric symptoms and monitor for any compliance of medication.
[2017-02-08] MEDS: DIVALPROEX ER 500 MG TAB.ER.24H PO SCH (21:08)
--- NOTE | 2017-02-09 14:40 | P.PN ---
Progress Note - Text SUBJECTIVE: I reviewed the medical record, interviewed Mr. Mac and discuss his treatment and treatment plan during team meeting. He denied problems or concerns. He stated that he slept well. He was unable to reach the psychologist to schedule an appointment for an independent mental health assessment. He stated that his claim attorney has a friend who was a psychiatrist and may be able to arrange an evaluation. OBJECTIVE: He presented as a casually groomed 31-year-old male who was euphoric. He showed no abnormality of psychomotor activity. His speech was not pressured and he did not display flight of ideas. His speech had increased rate, rhythm and volume. He denied suicidal ideation or wishes. His affect was elevated but stable and appropriate. He denied feeling hopelessness, helplessness and worthlessness. He was not suspicious. He did not perseverate about his treatment plan for the violation of his "rights". His thinking was abstract but is thinking was logical, coherent and goal directed. He denied hallucinations and did not appear to be responding to internal stimuli. ASSESSMENT: He appears moderately mentally ill and much improved from admission. However he has no insight or understanding of his illness or need for treatment. PLAN: Continue inpatient hospitalization until his independent evaluation and court hearing. Continue to talk about treatment with a mood stabilizing medication. Encourage participation in therapeutic groups and activities. Evaluate clinical status response to treatment daily basis.
[2017-02-09] MEDS: DIVALPROEX ER 500 MG TAB.ER.24H PO SCH (20:14)
--- NOTE | 2017-02-10 11:49 | P.PN ---
Progress Note - Text SUBJECTIVE: I reviewed the medical record, interviewed Mr. Mac and discuss his treatment and treatment plan during team meeting. He denied problems or concerns. He stated that he slept well. He has not yet scheduled an appointment for an independent mental health assessment as ordered by the court. He has an contract attorney (not authorized by the courts) who is purportedly assisting him with obtaining an independent mental health assessment. OBJECTIVE: He presented as a casually groomed 31-year-old male who was euphoric. He showed no abnormality of psychomotor activity. His speech was not pressured and he did not display flight of ideas. His speech had increased rate, rhythm and volume. He denied suicidal ideation or wishes. His affect was elevated but stable and appropriate. He denied feeling hopelessness, helplessness and worthlessness. He was not suspicious. He did not perseverate about his treatment plan for the violation of his "rights". His thinking was abstract but is thinking was logical, coherent and goal directed. He denied hallucinations and did not appear to be responding to internal stimuli. He slept 4 hours last night and 2 hours night before. ASSESSMENT: He appears moderately mentally ill and improved from admission. However he has no insight or understanding of his illness or need for treatment. PLAN: Continue inpatient hospitalization until his independent evaluation and court hearing. Continue to talk about treatment with a mood stabilizing medication. Encourage participation in therapeutic groups and activities. Evaluate clinical status response to treatment daily basis.
[2017-02-10] MEDS: DIVALPROEX ER 500 MG TAB.ER.24H PO SCH (21:04)
--- NOTE | 2017-02-11 11:57 | P.PN ---
Progress Note - Text SUBJECTIVE: I reviewed the medical record, interviewed Mr. Mac and discuss his treatment and treatment plan during team meeting. Jan stated that he does not wish to speak with me is I would use what he says against him. 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 He does not yet have an appointment for his independent evaluation. OBJECTIVE: He presented as a casually groomed 31-year-old male who was euphoric. He showed no abnormality of psychomotor activity. His speech was slightly pressured and he did not display flight of ideas. His speech had increased rate, rhythm and volume. He denied suicidal ideation or wishes. His affect was dysphoric but stable and appropriate. He denied feeling hopelessness, helplessness and worthlessness. He was not suspicious. He did not perseverate about his treatment plan for the violation of his "rights ". His thinking was abstract but is thinking was logical, coherent and goal directed. He denied hallucinations and did not appear to be responding to internal stimuli. He slept 7 hours last night . ASSESSMENT: He appears moderately mentally ill and improved from admission. However he has no insight or understanding of his illness or need for treatment. PLAN: Continue inpatient hospitalization until his independent evaluation and court hearing. Continue to talk about treatment with a mood stabilizing medication. Encourage participation in therapeutic groups and activities. Evaluate clinical status response to treatment daily basis.
[2017-02-11] MEDS: DIVALPROEX ER 500 MG TAB.ER.24H PO SCH (20:33)
--- NOTE | 2017-02-12 13:27 | P.PN ---
Progress Note - Text SUBJECTIVE: I reviewed the medical record, interviewed Mr. Mac and discuss his treatment and treatment plan during team meeting. He stated that he met with his deputy county attorney this morning and his deputy county attorney plans asked what the psychiatrist at [facility] to perform the independent evaluation. He continues to deny the need for psychiatric treatment. OBJECTIVE: He presented as a casually groomed 31-year-old male who was euphoric. He showed no abnormality of psychomotor activity. His speech was slightly pressured and he did not display flight of ideas. His speech had increased rate, rhythm and volume. He denied suicidal ideation or wishes. His affect was dysphoric but stable and appropriate. He denied feeling hopelessness, helplessness and worthlessness. He was not suspicious. He did not perseverate about his treatment plan for the violation of his "rights ". His thinking was abstract but is thinking was logical, coherent and goal directed. He denied hallucinations and did not appear to be responding to internal stimuli. He slept 5 hours last night . ASSESSMENT: He appears moderately mentally ill and improved from admission. However he has no insight or understanding of his illness or need for treatment. PLAN: Continue inpatient hospitalization until his independent evaluation and court hearing. Continue to talk about treatment with a mood stabilizing medication. Encourage participation in therapeutic groups and activities. Evaluate clinical status response to treatment daily basis.
[2017-02-12] MEDS: DIVALPROEX ER 500 MG TAB.ER.24H PO SCH (20:16)
--- NOTE | 2017-02-13 16:21 | P.PN ---
Progress Note - Text SUBJECTIVE: I reviewed the medical record, interviewed Mr. Mac and discuss his treatment and treatment plan during team meeting. He stated that he is willing to go to [facility] for "counseling" but remains opposed to taking psychotropic medications. He denies that he has a mental illness but believes she may benefit from contact with supportive and "positive" people. I attempted to engage him in a discussion of [facility] He admitted that he was "upset" but alleged that he was in full control of his behavior. He then went on to talk "other people" not believing in magic but he believes in magic. OBJECTIVE: He presented as a casually groomed 31-year-old male who was euphoric. He showed no abnormality of psychomotor activity. His speech was not pressured and he did not display flight of ideas. His speech did not have increased rate, rhythm and volume. He denied suicidal ideation or wishes. His affect was dysphoric but stable and appropriate. He denied feeling hopelessness, helplessness and worthlessness. He was not suspicious. He did not perseverate about his treatment plan for the violation of his "rights ". His thinking was abstract but is thinking was logical, coherent and goal directed. He denied hallucinations and did not appear to be responding to internal stimuli. He slept 6 hours last night . ASSESSMENT: He appears minimally mentally ill and improved from admission. However he has no insight or understanding of his illness or need for treatment. PLAN: Continue inpatient hospitalization until his independent evaluation and court hearing. Continue to talk about treatment with a mood stabilizing medication. Encourage participation in therapeutic groups and activities. Evaluate clinical status response to treatment daily basis.
[2017-02-13] MEDS: DIVALPROEX ER 500 MG TAB.ER.24H PO SCH (19:59)
--- NOTE | 2017-02-14 17:11 | P.PN ---
Progress Note - Text SUBJECTIVE: I reviewed the medical record and interviewed Mr. Mac. He has not heard from us to sheet metal welder about the independent psychiatric evaluation.. He plans to ask the printed circuit board preassembler for another postponement and take his grievances this about twice for violation "to the next higher level." He disputed his diagnosis and denies a need for mental health treatment. 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 He abruptly left the office. OBJECTIVE: He presented as a casually groomed 31-year-old male who was irritable. He showed no abnormality of psychomotor activity. His speech was pressured and he displayed flight of ideas. His speech had an increased rate, rhythm and volume. He denied suicidal ideation or wishes. His affect was irritable but stable and appropriate. He denied feeling hopelessness , helplessness and worthlessness. He perseverated about his treatment plan and the violation of his "rights". His thinking was abstract but is thinking was logical, coherent and goal directed. He denied hallucinations and did not appear to be responding to internal stimuli. He slept 6 hours last night . ASSESSMENT: He moderately mentally ill and minimally improved from admission. He has no insight or understanding of his illness or need for treatment. PLAN: Continue inpatient hospitalization until his independent evaluation and court hearing. Continue to talk about treatment with a mood stabilizing medication. Encourage participation in therapeutic groups and activities. Evaluate clinical status response to treatment daily basis.
[2017-02-14] MEDS: DIVALPROEX ER 500 MG TAB.ER.24H PO SCH (20:44)
--- NOTE | 2017-02-15 15:09 | P.PN ---
Progress Note - Text SUBJECTIVE: I reviewed the medical record and interviewed Mr. Mac. He called his document review attorney again today and has no further up-to-date about the independent psychiatric evaluation. As mentioned yesterday he plans to ask the surgical supply assistant for another postponement and take his grievances this about his right's violation "to the next higher level." He continues to deny that he has a psychiatric disorder but he agreed to outpatient counseling to "learn more as ". OBJECTIVE: He presented as a casually groomed 31-year-old male who was irritable. He showed no abnormality of psychomotor activity. His speech was nonpressured and he did not demonstrate flight of ideas. His speech had an increased rate, rhythm and volume. He denied suicidal ideation or wishes. His affect much less irritable than yesterday. He denied feeling hopelessness, helplessness and worthlessness. He perseverated about his treatment plan and the violation of his "rights". His thinking was abstract but is thinking was logical, coherent and goal directed. He denied hallucinations and did not appear to be responding to internal stimuli. He slept 6 hours last night . ASSESSMENT: He moderately mentally ill and minimally improved from admission. He has no insight or understanding of his illness or need for treatment. PLAN: Continue inpatient hospitalization until his independent evaluation and court hearing. Continue to talk about treatment with a mood stabilizing medication. Encourage participation in therapeutic groups and activities. Evaluate clinical status response to treatment daily basis.
[2017-02-15] MEDS: DIVALPROEX ER 500 MG TAB.ER.24H PO SCH (22:40)
[2017-02-16] MEDS: DIVALPROEX ER 500 MG TAB.ER.24H PO SCH (21:49)
--- NOTE | 2017-02-17 14:21 | P.PN ---
Progress Note - Text SUBJECTIVE: I reviewed the medical record, discuss his treatment team plan during team meeting and interviewed Mr. Mac. He was angry about this hospitalization and his treatment. He read a letter he is preparing to submit to recipient rights alleging multiple violation of his rights. The basis for many of his arguments were direct quotes of definitions from the dictionary. During his monologue he alleged that he has been studying mental health, psychotropic medications and coping skills since he was a child. He believes that we're attempting to poison him with psychotropic medications. He continues to deny the need for treatment of his mental illness and refuses to take psychotropic medications. OBJECTIVE: He presented as a casually groomed 31-year-old male who was irritable. He showed no abnormality of psychomotor activity. His speech was pressured but he did not demonstrate flight of ideas. His speech had an increased rate, rhythm and volume. He denied suicidal ideation or wishes. He was irritable. He denied feeling hopelessness, helplessness and worthlessness. He continues perseverated about his treatment plan and the violation of his "rights". His thinking was abstract but is thinking was logical, coherent and goal directed. He denied hallucinations and did not appear to be responding to internal stimuli. He slept 4hours last night. ASSESSMENT: He moderately mentally ill and much improved from admission. He continued show signs and symptoms of hypomania. He has no insight or understanding of his illness or need for treatment. PLAN: Continue inpatient hospitalization until his independent evaluation and court hearing. Continue to talk about treatment with a mood stabilizing medication. Encourage participation in therapeutic groups and activities. Evaluate clinical status response to treatment daily basis.
[2017-02-17] MEDS: DIVALPROEX ER 500 MG TAB.ER.24H PO SCH (21:04)
--- NOTE | 2017-02-18 13:43 | P.PN ---
Progress Note - Text SUBJECTIVE: I reviewed the medical record, discuss his treatment team plan during team meeting and interviewed Mr. Mac. He is distressed by continued hospitalization. He continues to deny that he has a mental illness or that he requires mental health treatment. His contracts attorney has not yet scheduled an independent evaluation as ordered by the court. OBJECTIVE: He presented as a casually groomed 31-year-old male who was irritable. He showed no abnormality of psychomotor activity. His speech was not pressured and he did not demonstrate flight of ideas. His speech had an increased rate, rhythm and volume. He denied suicidal ideation or wishes. He was irritable. He denied feeling hopelessness, helplessness and worthlessness. He continues perseverated about his treatment plan and the violation of his "rights". His thinking was abstract but is thinking was logical, coherent and goal directed. He denied hallucinations and did not appear to be responding to internal stimuli. He slept 8 hours last night . ASSESSMENT: He moderately mentally ill and much improved from admission. He has no insight or understanding of his illness or need for treatment. PLAN: Continue inpatient hospitalization until his independent evaluation and court hearing. Continue to talk about treatment with a mood stabilizing medication. Encourage participation in therapeutic groups and activities. Evaluate clinical status response to treatment daily basis.
--- NOTE | 2017-02-18 15:53 | P.PN ---
Progress Note - Text SUBJECTIVE: I reviewed the medical record, discuss his treatment team plan during team meeting and interviewed Mr. Mac. He remains preoccupied about the involuntary hospitalization and the alleged violation of his rights. I would not let him perseverated on these topics. OBJECTIVE: He presented as a casually groomed 31-year-old male who was irritable. He showed no abnormality of psychomotor activity. His speech was pressured but he did not demonstrate flight of ideas. His speech had an increased rate, rhythm and volume. He denied suicidal ideation or wishes. He was irritable. He denied feeling hopelessness, helplessness and worthlessness. He remains preoccupied with his treatment plan and the violation of his "rights". His thinking was abstract but is thinking was logical, coherent and goal directed. He denied hallucinations and did not appear to be responding to internal stimuli. He slept 5 hours last night. campaign worker scheduled a family meeting this Thursday. She invited the recipient rights officer to the meeting. ASSESSMENT: He moderately mentally ill and much improved from admission. He continued show signs and symptoms of hypomania. He has no insight or understanding of his illness or need for treatment. PLAN: Continue inpatient hospitalization until his independent evaluation and court hearing. Continue to talk about treatment with a mood stabilizing medication. Encourage participation in therapeutic groups and activities. Evaluate clinical status response to treatment daily basis
[2017-02-18] MEDS: DIVALPROEX ER 500 MG TAB.ER.24H PO SCH (21:01)
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
[2017-02-19] MEDS: DIVALPROEX ER 500 MG TAB.ER.24H PO SCH (20:53)
--- NOTE | 2017-02-20 16:13 | P.PN ---
Progress Note - Text SUBJECTIVE: I reviewed the medical record, discuss his treatment team plan during team meeting and interviewed Mr. Mac. The social services analyst and I met with Caio and his mother. She had asked for a "family meeting". Caio was rude , demanding and hyperverbal. He perseverated on the injustice of his hospitalization and the belief that we have closely violated his rights. His mother demanded that we discharge him. She would not listen to her explanation that we are awaiting the probate hearing. Despite Caio's behavior she alleged that he is normal and at "baseline". During the meaning he stated he will not go to [facility] and will not take prescribed psychotropic medications. OBJECTIVE: He presented as a casually groomed 31-year-old male who was minimally cooperative with the interview. He showed no abnormality of psychomotor activity. His speech was pressured and he demonstrated flight of ideas His speech had an increased rate, rhythm and volume. He denied suicidal ideation or wishes. He was irritable. He denied feeling hopelessness, helplessness and worthlessness. He remains preoccupied with his treatment plan and the violation of his "rights". His thinking was abstract but is thinking was logical, coherent and goal directed. He denied hallucinations and did not appear to be responding to internal stimuli. He slept 4 hours last night. ASSESSMENT: He moderately mentally ill and much improved from admission. He continued show signs and symptoms of hypomania. He has no insight or understanding of his illness or need for treatment. PLAN: Continue inpatient hospitalization until his independent evaluation and court hearing. Family meeting scheduled for 02/20/2017. Continue to talk about treatment with a mood stabilizing medication. Encourage participation in therapeutic groups and activities. Evaluate clinical status response to treatment daily basis
[2017-02-20] MEDS: DIVALPROEX ER 500 MG TAB.ER.24H PO SCH (20:05)
--- NOTE | 2017-02-21 19:27 | P.PN ---
Progress Note - Text Date of service: 02/21/2017 Chief complaint: "I came to the hospital to get help, but they keep me here against my will" Subjective: The patient has been seeing today as follow-up, chart reviewed, case discussed with the treatment team. The patient was very fixated on the primary team has been working against him and labeling him with psychiatric illnesses. Patient was very evasive about the reason he came to the hospital, but he endorsed that the primary team psychiatrist and social security assessor refusing discharge him because he is taoist and reading the Bible a lot. The patient endorses feeling frustrated because of the current situation and today he asked the nurses give him a copy of his treatment goals but they couldn't access it today. Patient appeared very argumentative and according to the unit staff reported the same. The patient continued to refuse taking any psychiatric medications, and he states that he is waking for other psychiatric evaluation by independent provider. The patient denies any manic symptoms including sustained period of time with elevated or irritable mood, impulsive or irrational behavior, inflated self- esteem, or absence need to sleep due to increases goal-directed activities. The patient denies any auditory or visual hallucinations. Also the patient denies any paranoid ideation. Review of other systems: Patient denies any physical symptoms besides what has been mentioned above. No problems was presenting no chest pain reported today. Objective: Vitals has been reviewed. Mental status examination; Appearance: The patient appears stated age, adequately groomed, no specific features. Gait/posture: Normal gait, Normal arm was swinging: No abnormal movements. Attitude and behavior: engaged, partially cooperative, intermittent eye contact. Motor activity: No psychomotor agitation or retardation Speech: Loud, hyperverbal Mood: Frustrated Affect: Constricted Thought form: Argumentative, but goal-directed, linear, coherent. Thought content: Non-delusional, denies suicidal thoughts, denies homicidal thoughts, denies intentions or plans. Perception: Denies any auditory or visual hallucinations Attention: No impairment. Patient was able to repeat serial 7. Orientation: Patient patient was fully oriented to time place person and situation. Insight: Patient has limited insight about his psychiatric disorder. Judgment: Patient has limited judgment about his psychiatric treatment. Assessment: Unspecified psychosis. Rule out substance-induced psychosis Plan: Continue encouraging patient for better engagement in treatment.
[2017-02-21] MEDS: DIVALPROEX ER 500 MG TAB.ER.24H PO SCH (20:19)
--- NOTE | 2017-02-22 16:54 | P.PN ---
Progress Note - Text Date of service: 02/22/2070 Chief complaint: "I still feel the same" Subjective: The patient has been seen today as follow-up, chart reviewed, case discussed with the treatment team. The patient reports he still feels the same, and explained that he doesn't need to be in the hospital. Patient is very fixated on being admitted against his will, and he denies feeling depressed, suicidal, or homicidal. Patient denies any auditory hallucinations, and he denies any paranoid ideation or other delusions. Patient presented coherent, non psychotic , and illogical. The patient continued to refuse taking any psychiatric medications, and he states that he is waiting for other psychiatric evaluation by independent provider. The patient denies any manic symptoms including sustained period of time with elevated or irritable mood, impulsive or irrational behavior, inflated self- esteem, or absence need to sleep due to increases goal-directed activities. Review of other systems: Patient denies any physical symptoms besides what has been mentioned above. No breathing problems, no chest pain reported today. Objective: Vitals has been reviewed. Mental status examination; Appearance: The patient appears stated age, adequately groomed, no specific features. Gait/posture: Normal gait, Normal arm was swinging: No abnormal movements. Attitude and behavior: engaged, cooperative, intermittent eye contact. Motor activity: No psychomotor agitation or retardation Speech: Loud Mood: Frustrated Affect: Constricted Thought form: goal-directed, linear, coherent. Thought content: Non-delusional, denies suicidal thoughts, denies homicidal thoughts, denies intentions or plans. Perception: Denies any auditory or visual hallucinations Attention: No impairment. Patient was able to repeat serial 7. Orientation: Patient patient was fully oriented to time place person and situation. Insight: Patient has limited insight about his psychiatric disorder. Judgment: Patient has limited judgment about his psychiatric treatment. Assessment: Unspecified psychosis. Rule out substance-induced psychosis Plan: Continue encouraging patient for better engagement in treatment.
[2017-02-22] MEDS: DIVALPROEX ER 500 MG TAB.ER.24H PO SCH (20:34)
--- NOTE | 2017-02-23 15:45 | P.PN ---
Progress Note - Text SUBJECTIVE: I reviewed the medical record, discuss his treatment team plan during team meeting and interviewed Mr. Mac. He refused to speak with me. The social media developer told me that he filed a recipient's rights complaint against us regarding the family meeting last Thursday. He recipient rights officer reviewed his complaints and found they were without merit. OBJECTIVE: He presented as a casually groomed 31-year-old male who was not cooperative with the interview. He showed no abnormality of psychomotor activity. He was irritable. He walks around the unit with several pieces of paper where he is documented the alleged violation of his rights. He remains preoccupied with his treatment plan and the violation of his "rights". He did not appear to be responding to internal stimuli. He slept 5 hours last night. ASSESSMENT: He is angry and uncooperative. He continued show signs and symptoms of hypomania. He has no insight or understanding of his illness or need for treatment. PLAN: Continue inpatient hospitalization until his independent evaluation and court hearing. Probate hearing scheduled for 03/03/2017. Continue to talk about treatment with a mood stabilizing medication. Encourage participation in therapeutic groups and activities. Evaluate clinical status response to treatment daily basis
[2017-02-23] MEDS: DIVALPROEX ER 500 MG TAB.ER.24H PO SCH (21:31)
--- NOTE | 2017-02-24 15:42 | P.PN ---
Progress Note - Text SUBJECTIVE: I reviewed the medical record, discuss his treatment team plan during team meeting and interviewed Mr. Mac. He again refused to speak with me. acid conditioning worker reported that he made inappropriate comments during group therapy. OBJECTIVE: He presented as a casually groomed 31-year-old male who was not cooperative with the interview. He showed no abnormality of psychomotor activity. He was irritable. He walks around the unit with several pieces of paper where he is documented the alleged violation of his rights. He remains preoccupied with his treatment plan and the violation of his "rights". He did not appear to be responding to internal stimuli. He slept 5 hours last night. ASSESSMENT: He is angry and uncooperative. He continues to show signs and symptoms of hypomania. He has no insight or understanding of his illness or need for treatment. PLAN: Continue inpatient hospitalization until his independent evaluation and court hearing. Probate hearing scheduled for 03/03/2017. Continue to talk about treatment with a mood stabilizing medication. Encourage participation in therapeutic groups and activities. Evaluate clinical status response to treatment daily basis
[2017-02-24] MEDS: DIVALPROEX ER 500 MG TAB.ER.24H PO SCH (22:14)
--- NOTE | 2017-02-25 15:40 | P.PN ---
Progress Note - Text SUBJECTIVE: I reviewed the medical record, discuss his treatment team plan during team meeting and interviewed Mr. Mac. He again refused to speak with me. The nursing home social worker and the [facility] liaison have been in contact with probate Court regarding the status of his independent psychiatric evaluation. OBJECTIVE: He presented as a casually groomed 31-year-old male who was not cooperative with the interview. He showed no abnormality of psychomotor activity. He was irritable. He walks around the unit with several pieces of paper where he is documented the alleged violation of his rights. He remains preoccupied with his treatment plan and the violation of his "rights". He did not appear to be responding to internal stimuli. He slept 5 hours last night. ASSESSMENT: He is angry and uncooperative. He continues to show signs and symptoms of hypomania. He has no insight or understanding of his illness or need for treatment. PLAN: Continue inpatient hospitalization until his independent evaluation and court hearing. Probate hearing scheduled for 03/03/2017. Continue to talk about treatment with a mood stabilizing medication. Encourage participation in therapeutic groups and activities. Evaluate clinical status response to treatment daily basis
--- NOTE | 2017-02-26 12:41 | P.PN ---
Progress Note - Text SUBJECTIVE: I reviewed the medical record, discuss his treatment team plan during team meeting and interviewed Mr. Mac. He came into my office briefly to talk about his substance use and aftercare. He wished to correct the comment he made during the family meeting about needing to smoke marijuana. He wonders if she remains that he does not "need" to smoke marijuana and does not plan to continue using marijuana or other drugs after discharge. He was agreed to mental health treatment through [facility] counseling and alleged that he spoke with a customer development representative [facility] about this option. OBJECTIVE: He presented as a casually groomed 31-year-old male who was cooperative as long as we limited the discussion to his concerns. He showed no abnormality of psychomotor activity. He was irritable. He did not perseverate on the violation of his rights. He continued to maintain that he does not have a mental illness that requires psychiatric treatment. His speech was pressured. He did not appear to be responding to internal stimuli. He openly attended the anger management group yesterday. The therapist noted that he was irritable and a hyperverbal He slept 6 hours last night. He does not have the independent psychiatric evaluation scheduled. ASSESSMENT: He is angry and uncooperative. He continues to show signs and symptoms of hypomania. He has no insight or understanding of his illness or need for treatment. PLAN: Continue inpatient hospitalization until his independent evaluation and court hearing. Probate hearing scheduled for 03/03/2017. Continue to talk about treatment with a mood stabilizing medication. Encourage participation in therapeutic groups and activities. Evaluate clinical status response to treatment daily basis
--- NOTE | 2017-02-27 12:25 | P.PN ---
Progress Note - Text SUBJECTIVE: I reviewed the medical record, discuss his treatment team plan during team meeting and interviewed Mr. Mac. He is pleasant on approach. He denied concerns other than continued hospitalization. His roll cutting operator has not yet scheduled the independent psychiatric evaluation. OBJECTIVE: He presented as a casually groomed 31-year-old male who was present as long as we limited the discussion to his concerns. He showed no abnormality of psychomotor activity. He was irritable. He did not perseverate on the violation of his rights. He continued to maintain that he does not have a mental illness that requires psychiatric treatment. His speech was pressured. He did not appear to be responding to internal stimuli. ASSESSMENT: He remains angry and uncooperative. He continues to show signs and symptoms of hypomania. He has no insight or understanding of his illness or need for treatment. PLAN: Continue inpatient hospitalization until his independent evaluation and court hearing. Probate hearing scheduled for 03/03/2017. Continue to talk about treatment with a mood stabilizing medication. Encourage participation in therapeutic groups and activities. Evaluate clinical status response to treatment daily basis
--- NOTE | 2017-02-28 21:44 | P.PN ---
Progress Note - Text Interval history: Patient seen in cross coverage today for Dr. Zepeda. He reports that he sleeping about 7 hours a night and is eating enough. He has a court hearing upcoming. He is not currently on psychotropic medication. He relates that his mood is feeling awful related to a female friend that is in the hospital and has had surgery and has a lot of medical issues right now. Mental status exam: He is alert and cooperative with the interview. His speech is fluent, not rapid or pressured. His affect shows range. He describes his mood as "awful." He denies any thoughts of harm to self or others. He does not verbalize any hallucinations. Plan: We'll continue to cover this patient for Dr. Zepeda through the weekend. We'll continue to monitor his mood.
--- NOTE | 2017-03-01 11:23 | P.PN ---
Progress Note - Text Interval history: Patient reports that he slept well last night and is eating well. He says he has not talked to his friend today is in the hospital. He says considering the circumstances his mood is doing okay. He was found in his room. he makes reference to not going to groups on Saturdays related to mosque beliefs. Mental status exam: He is alert and cooperative with the interview. Speech is fluent, not rapid or pressured. He describes his mood is doing "considering the circumstances okay." He denies any thoughts of harm to self or others. He does not show any significant agitation. His affect does show range. Plan: Dr. Zepeda will resume care this patient starting tomorrow. Continue to monitor his status. He has upcoming court hearing on Thursday.
--- NOTE | 2017-03-02 14:49 | P.PN ---
Progress Note - Text SUBJECTIVE: I reviewed the medical record, discuss his treatment team plan during team meeting and interviewed Mr. Mac. He is pleasant on approach. He complained that he's been kept in hospital illegally. He also complained about the violation of HIPPA Rights. He alleged that other patients overheard a jewelry sales representative from [facility] talking about his diagnosis, noncompliance and treatment recommendations. OBJECTIVE: He presented as a casually groomed 31-year-old male who was present as long as we limited the discussion to his concerns. He showed no abnormality of psychomotor activity. He was irritable. He continued to maintain that he does not have a mental illness that requires psychiatric treatment. His speech was pressured. He did not appear to be responding to internal stimuli. ASSESSMENT: He remains angry and uncooperative. He continues to show signs and symptoms of hypomania. He has no insight or understanding of his illness or need for treatment. PLAN: Continue inpatient hospitalization until his independent evaluation and court hearing. Probate hearing scheduled for 03/03/2017. Continue to talk about treatment with a mood stabilizing medication. Encourage participation in therapeutic groups and activities. Evaluate clinical status response to treatment daily basis
--- NOTE | 2017-03-03 15:22 | P.PN ---
Progress Note - Text SUBJECTIVE: I reviewed the medical record, discuss his treatment team plan during team meeting and interviewed Mr. Mac. He was anxious regarding the probate hearing today. The courts called and canceled my testimony. When Caio returned from court he was angry and complained that the perfect binder feeder offbearer will not allow him to talk. OBJECTIVE: He presented as a casually groomed 31-year-old male who was present as long as we limited the discussion to his concerns. He showed no abnormality of psychomotor activity. He was irritable. He continued to maintain that he does not have a mental illness that requires psychiatric treatment. His speech was pressured. He did not appear to be responding to internal stimuli. ASSESSMENT: He remains angry and uncooperative. He continues to show signs and symptoms of hypomania. He has no insight or understanding of his illness or need for treatment. PLAN: Continue inpatient hospitalization until his independent evaluation and court hearing. Outcome of the probate hearing pending. Continue to talk about treatment with a mood stabilizing medication. Encourage participation in therapeutic groups and activities. Evaluate clinical status response to treatment daily basis
--- NOTE | 2017-03-04 13:30 | P.PN ---
Progress Note - Text SUBJECTIVE: I reviewed the medical record, discuss his treatment team plan during team meeting and interviewed Mr. Mac. He stated that the senior hr business partner ordered him to be evaluated by someone and he has to go back to court. He complained of financial problems because the cost of the private county attorney. OBJECTIVE: He presented as a casually groomed 31-year-old male who was was not approach. He showed no abnormality of psychomotor activity. His speech was spontaneous with slight increase in rate and rhythm. His affect was bright. He continued to maintain that he does not have a mental illness that requires psychiatric treatment.He did not appear to be responding to internal stimuli. According to socially responsible investment adviser who was present during the court hearing the senior hr business partner ordered an independent psychological evaluation to be completed her hospital or with police escort at the clinician's office. An appropriate hearing was scheduled for 03/10/2017. ASSESSMENT: He continues to show signs and symptoms of hypomania. He has no insight or understanding of his illness or need for treatment. PLAN: Continue inpatient hospitalization until his independent evaluation and court hearing. Independent psychological evaluation pending. Probate hearing rescheduled to 03/10/2017. Continue to talk about treatment with a mood stabilizing medication. Encourage participation in therapeutic groups and activities. Evaluate clinical status response to treatment daily basis
--- NOTE | 2017-03-05 14:52 | P.PN ---
Progress Note - Text SUBJECTIVE: I reviewed the medical record, discuss his treatment team plan during team meeting and interviewed Mr. Mac. She received a notice that his probate hearing is scheduled for 03/13/2017. He is yet to receive an appointment for his independent psychological evaluation. I asked why he is wearing a blanket as a cape. He replied that he needs to "act the part". As long as I am in a nuthouse and might as will act it. OBJECTIVE: He presented as a casually groomed 31-year-old male who wasn't approach approach. He wore a blanket and tied around his shoulders as a cape. He showed no abnormality of psychomotor activity. His speech was pressured. His affect was elevated. He smiled and laughed throughout the interview. He continued to maintain that he does not have a mental illness that requires psychiatric treatment. He did not appear to be responding to internal stimuli. ASSESSMENT: He continues to show signs and symptoms of hypomania. He has no insight or understanding of his illness or need for treatment. PLAN: Continue inpatient hospitalization until his independent evaluation and court hearing. Independent psychological evaluation pending. Probate hearing rescheduled to 03/13/2017. Continue to talk about treatment with a mood stabilizing medication. Encourage participation in therapeutic groups and activities. Evaluate clinical status response to treatment daily basis
--- NOTE | 2017-03-06 14:17 | P.PN ---
Progress Note - Text SUBJECTIVE: I reviewed the medical record, discuss his treatment team plan during team meeting and interviewed Mr. Mac. He he has the independent evaluation scheduled for , 03/12/2017 at the psychologist's office. The course will need to arrange for police transport to the evaluation. OBJECTIVE: He presented as a casually groomed 31-year-old male who wasn't approach approach. He showed no abnormality of psychomotor activity. His speech was pressured. His affect was elevated. He smiled and laughed throughout the interview. He continued to maintain that he does not have a mental illness that requires psychiatric treatment. He did not appear to be responding to internal stimuli. ASSESSMENT: He continues to show signs and symptoms of hypomania. He has no insight or understanding of his illness or need for treatment. PLAN: Continue inpatient hospitalization until his independent evaluation and court hearing. Independent psychological evaluation scheduled for 03/12/2017 and the probate hearing is 03/13/2017. Continue to talk about treatment with a mood stabilizing medication. Encourage participation in therapeutic groups and activities. Evaluate clinical status response to treatment daily basis
--- NOTE | 2017-03-08 09:01 | PN ---
DATE OF SERVICE: 03/07/2017 CHIEF COMPLAINT: The patient was admitted due to disorganized behavior, odd speech, apparent auditory hallucinations and apparent recent use of hallucinogens. INTERVAL HISTORY: Patient has been doing fair. By his own report he says he is doing well. He notes that his assessment is that he came into the hospital due to the effects of taking acid. He says that he believes the issues are resolving. It is noted that he gets out on the unit. When he attends groups he tends to have some disorganization of thoughts. He may make inappropriate or odd comments. He has been attending most groups. He stays out on the unit. He will interact with others. He slept 5-1/2 hours last night. He continues to decline use of medications believing that there is no reason for him to be on medications at this time. He does have court issues pending as it relates to the petition for involuntary hospitalization. He has not had change in his general health. MENTAL STATUS: Patient was in his room, sitting on his bed. He gave good eye contact. He answered questions directly. His thoughts were clear and coherent. He was spontaneous and interactive. His affect was in a reasonable range. His mood was even. He did not appear to be distressed. ASSESSMENT: I will continue the current diagnosis and treatment plan. We will continue to make efforts to engage the patient in individual and group therapeutic activities. At this point the patient will be maintained off psychotropic medications. We will aim for further treatment planning once court issues are resolved relating to petition for involuntary hospitalization.
--- NOTE | 2017-03-08 21:50 | PN ---
DATE OF SERVICE: 03/08/2017 CHIEF COMPLAINT: The patient was admitted due to disorganized behavior, odd speech, apparent auditory hallucinations and apparent recent use of hallucinogens. INTERVAL HISTORY: Patient has been doing fairly well. He had a quiet evening last night. He slept, well. Today, he has been up and about. He has been attending groups. He is appropriate in groups. He gets out on the unit. He does not seem to interact too much with others. It is noteworthy that today he has been wearing a white cloth wrapped around his neck and going down to his knees that appears like a cape. He says he is wearing that to be humorous and rock picker the mood of others around him. He voices no complaints today. He generally has been appropriate in the milieu. He says he is just focused on the legal issues. He has had no change in his general health. MENTAL STATUS: Patient gave good eye contact. Psychomotor activity and speech were normal. He was animated. His thoughts were clear. His affect was in a reasonable range. He smiled. His mood was even. He was not distressed. It was difficult to say if he was exhibiting any hypomanic or manic symptoms. He did not appear to be hyperverbal. There was no outward sign of thought disorder. ASSESSMENT: I will continue the current diagnosis and treatment plan he will continue off psychotropic medications. Issues remain relating to his petition for treatment.
--- NOTE | 2017-03-09 14:21 | P.PN ---
Progress Note - Text SUBJECTIVE: I reviewed the medical record, discuss his treatment team plan during team meeting and interviewed Mr. Mac. The person identified for the independent examination by the probate Court has declined to conduct the interview. Caio minimizes problems and boasted group how he is been able to remain in the hospital and did not take Sectral. Medications. OBJECTIVE: He presented as a casually groomed 31-year-old male who was pleasant on approach. He showed no abnormality of psychomotor activity. His speech was pressured. His affect was elevated. He smiled and laughed throughout the interview. He continued to maintain that he does not have a mental illness that requires psychiatric treatment. He did not appear to be responding to internal stimuli. ASSESSMENT: He continues to show signs and symptoms of hypomania. He has no insight or understanding of his illness or need for treatment. PLAN: Continue inpatient hospitalization until his independent evaluation and court hearing. Independent psychological evaluation scheduled for 03/12/2017 and the probate hearing is 03/13/2017. Continue to talk about treatment with a mood stabilizing medication. Encourage participation in therapeutic groups and activities. Evaluate clinical status response to treatment daily basis
--- NOTE | 2017-03-10 15:20 | P.PN ---
Progress Note - Text SUBJECTIVE: I reviewed the medical record, discuss his treatment team plan during team meeting and interviewed Mr. Mac. Caio gave me a handout that he received from one of the group sessions titled "what stresses you out?". He wrote bizarre statements aat random directions across the face sheet. His list of stresses include rude police, pressured to take drugs (mind numbing/and/ organ damaging) and psychiatry (if only that he knew the spirit was more important than the brain). He made several disparaging comments regarding this sign writer hand. OBJECTIVE: He presented as a casually groomed 31-year-old male who was pleasant on approach. He showed no abnormality of psychomotor activity. His speech was pressured. His affect was elevated. He smiled and laughed throughout the interview. He continued to maintain that he does not have a mental illness that requires psychiatric treatment. He did not appear to be responding to internal stimuli. ASSESSMENT: He continues to show signs and symptoms of hypomania. He has no insight or understanding of his illness or need for treatment. PLAN: Continue inpatient hospitalization until his independent evaluation and court hearing. Independent psychological evaluation scheduled for 03/12/2017 and the probate hearing is 03/13/2017. Continue to talk about treatment with a mood stabilizing medication. Encourage participation in therapeutic groups and activities. Evaluate clinical status response to treatment daily basis
--- NOTE | 2017-03-11 13:33 | P.PN ---
Progress Note - Text SUBJECTIVE: The medical record, interviewed Mr. Pepper and discuss his treatment and treatment plan during team meeting. He stated that he had his independent evaluation this morning and added "I can't talk to you about it." I received a Order for Gentleman from the probate Court indicating that he has requested a retrial that'll be scheduled for 03/20/2017 9 AM. OBJECTIVE: He presented as casually groomed 31-year-old male who was superficially pleasant. He greeted me with a Nazi salute. When I told him that his gesture was inappropriate he replied that "it is not. You forcing me to take all of these poisonous medications." He had no prominent physical abnormalities. He had a bright almost elated facial expression. He was restless. His speech was spontaneous with increased rate and rhythm. His affect was elevated. He did not express ideas reference or paranoid ideation. His thinking was concrete but his associations were coherent. He denied hallucinations and did not appear to be responding to external stimuli. ASSESSMENT: He continues to show signs and symptoms of hypomania. He continues to refuse mood stabilizing medications and denies that he has a mental illness. PLAN: Continue inpatient hospitalization until the probate hearing and 2016.
--- NOTE | 2017-03-12 14:57 | P.PN ---
Progress Note - Text SUBJECTIVE: The medical record, interviewed Mr. Mac and discuss his treatment and treatment plan during team meeting. He denied concerns other than looking forward to the jury trial for involuntary hospitalization. OBJECTIVE: He presented as casually groomed 31-year-old male who was superficially pleasant. He had no prominent physical abnormalities. He had a bright almost elated facial expression. He was restless. His speech was spontaneous with increased rate and rhythm. His affect was elevated. He did not express ideas reference or paranoid ideation. His thinking was concrete but his associations were coherent. He denied hallucinations and did not appear to be responding to external stimuli. ASSESSMENT: He continues to show signs and symptoms of hypomania. He continues to refuse mood stabilizing medications and denies that he has a mental illness. PLAN: Continue inpatient hospitalization until the probate hearing and 2016.
[2017-03-12 15:33] VITALS: BMI 23.0
[2017-03-12] MEDS ORDERED: IBUPROFEN 400 MG TAB PO PRN (18:02)
--- NOTE | 2017-03-13 13:59 | P.PN ---
Progress Note - Text SUBJECTIVE: I reviewed the medical record, attempted to interview Mr. Pepper and discuss his treatment and treatment plan and team meeting. He was angry and irritable. He accused me and the treatment team of lying. He told me that I am deluded and incompetent. He perseverated on his rights and alleged that we have repeatedly violated his rights and the recipient right officer is in collusion with us. OBJECTIVE: He presented as a casually dressed and groomed 31-year-old male. He made eye contact but did not attend to the exam. He had no distinguishing features or prominent physical abnormalities. He had an angry facial expression. He was agitated but not restless. His speech is pressured. His affect was labile, irritable and angry. He had suicidal homicidal ideation. He denied feeling hopeless, helpless or worthless. He ruminated about this hospitalization, depending probate hearing, his rights and incompetence of his treatment team. He did not express ideas of reference but appeared paranoid and suspicious. His thinking was not logical and organized. He denied hallucinations did not appear to be responding to internal stimuli. ASSESSMENT: He continued show signs and symptoms of hypomania. He is much more irritable and disorganized and prior counters. PLAN: She knew inpatient psychiatric hospitalization pending the jury trial for involuntary hospitalization on 03/20/2017.
--- NOTE | 2017-03-14 09:54 | P.PN ---
Progress Note - Text Interval history: The patient is found in his room he reluctantly follows me to an interview room. He has been on the mental health unit for an extended period of time as he is still going through a court process to assert his rights. He has not been willing to take a medication to manage his hypomanic/ manic symptoms. He states that's his attending psychiatrist is not using factual information. He feels that the social workers leading group are telling him positive things and then going behind his back and telling the doctor other things. He feels that he is placed in this hospital as a punishment for past wrongdoings. He states that the medicine that was offered is dangerous and has serious side effects that he assumes he would suffer from. He did undergo an independent medical exam with Dr. Blanton. Although Dr. Blanton is not affiliated with the hospital he states he's heard his name called over the intercom numerous times. He states he needed a [employer] psychologist to evaluate him because others are just trying to punish him. He states he has goals of going back to school and becoming a rn social services or psychologist as he feels he can do the job better than the professionals here on this mental health unit. Mental status exam: The patient is a thin male he has a disheveled appearance he is dressed in his own clothing hygiene is fair. Eye contact is appropriate. He is seated in a chair but frequently moves while seated demonstrated increased psychomotor activity. Speech is spontaneous fluent's he is verbose and he is pressured. He demonstrates circumstantial and tangential thinking he demonstrates no flight of ideas at this time. He will directly denied having any auditory or visual hallucinations and he will deny having any paranoid thinking but as he describes his concerns related to his hospital stay it's obvious he feels persecuted. Insight and judgment limited. He demonstrates no verbal or physical aggressiveness. Although he is not aggressive it is necessary to redirect him in conversation due to his speech and thought process. He is reporting no suicidal or homicidal thoughts. Plan: The patient continues to refuse any psychotropic medication he has court scheduled for Thursday. He has undergone independent medical exam. He clearly is dealing with symptoms of hypomania/rolo and there is a strong possibility that he is experiencing delusional thought content to some extent. Vital signs reviewed they're within normal limits we will continue to monitor him for safety.
--- NOTE | 2017-03-15 11:00 | P.PN ---
Progress Note - Text Interval history: The patient is found in his room he follows me to an interview room. He states he did not attend groups yesterday as he has been working on his court case. He states he probably will attend today as he does not like the staff member leaving the groups he describes her as being "rude". He states he slept throughout the night documentation suggests he slept 6 hours. Appetite stable. He does not wish to initiate a mood stabilizer. Status exam: The patient is alert he seated in the chair he frequently changes position while seated. Eye contact is appropriate. Overall he is cooperative. Speech is spontaneous verbose mildly pressured at times. Thought process ranges from circumstantial thinking to tangential thinking at times. He denies any overt symptoms of psychosis but again it appears he frequently looks for situations where people could persecute him. He is endorsing no auditory or visual hallucinations. He reports no suicidal or homicidal ideation intent or plan. Insight and judgment are limited. He demonstrates no verbal or physical aggressiveness. Plan: The patient is encouraged to participate in the milieu he refuses to take medication to stabilize mood. He does have a court hearing Thursday to address his concerns. We will continue to monitor for safety.
--- NOTE | 2017-03-16 15:14 | P.PN ---
Progress Note - Text SUBJECTIVE: I reviewed the medical record, attempted to interview Mr. Feliciano and discuss his treatment and treatment plan during team meeting. He refused to speak with me; "I did not speak with strangers." OBJECTIVE: He presented as a casually groomed restless and euphoric appearing 31-year-old male. His speech was pressured with increased rate and rhythm. ASSESSMENT: He continues to be hypomanic. We are awaiting a jury trial for involuntary hospitalization PLAN: Continue with inpatient disposition pending a jury trial scheduled for 03/2017.
--- NOTE | 2017-03-17 12:09 | P.PN ---
Progress Note - Text SUBJECTIVE: I reviewed the medical record, attempted to interview Mr. Godinez discuss his treatment and treatment plan during team meeting. He gave me a Nazi salute when I greeted him this morning. When I told him that his gesture was inappropriate he replied "you're inappropriate." OBJECTIVE: He presented as an irritable and restless 31-year-old male was minimally cooperative. He maintained contact but would not attend to the interview. His speech was spontaneous with increased rate. His affect was irritable and inappropriate. He did not express ideas reference or delusional thoughts. The therapist asked him to leave the group this morning because he was disruptive and not redirectable. ASSESSMENT: He remains hypomanic and refusing mood stabilizing medications PLAN: Continue inpatient hospitalization pending the probate hearing on 03/20/2017.
--- NOTE | 2017-03-18 12:00 | P.PN ---
Progress Note - Text SUBJECTIVE: I reviewed the medical record, attempted to interview Mr. washington to discuss his treatment and treatment plan during team meeting. He again refused to speak with me. OBJECTIVE: He is casually groomed restless, loud and impulsive from the unit. His speech is rapid and he shows flight of ideas. He does not appear to be responding to internal stimuli. ASSESSMENT: He continued show signs and symptoms of hypomania. PLAN: Continue hospitalization pending the probate hearing on 03/20/2017.
--- NOTE | 2017-03-19 12:23 | P.PN ---
Progress Note - Text SUBJECTIVE: I reviewed the medical record, attempted to interview Mr. Mac and discusse his treatment and treatment plan during team meeting. He again refused to speak with me. OBJECTIVE: He is casually groomed restless, loud and impulsive from the unit. His speech is rapid and he shows flight of ideas. He does not appear to be responding to internal stimuli. ASSESSMENT: He continued show signs and symptoms of hypomania. PLAN: He has his probate jury trial tomorrow 03/20/2017. If the jury finds that he does not meet involuntary criteria will discharge him home. Otherwise, we'll discuss and initiate treatment with mood stabilizers.
[2017-03-20 06:42] VITALS: BP 130/84; PULSE 88; RESP 16; TEMP 98.2
--- NOTE | 2017-03-20 11:39 | P.DS ---
Providers Date of admission: 01/19/17 15:57 Attending physician: Romel Zepeda MD Consults: 01/19/17 16:01 Consult Physician Routine Consulting Provider: Demetrio Salas Jr Consult Reason/Comments: H & P and medical management Do you want consulting provider notified?: Yes Primary care physician: Stated None - Discharge Diagnosis(es) (1) Bipolar disorder, most recent episode hypomanic Current Visit: Yes Status: Acute (2) Opioid use disorder, moderate, in early remission Current Visit: Yes Status: Chronic Priority: Low (3) Hallucinogen abuse Current Visit: No Status: Chronic Priority: High Hospital Course: Mr. Mac is a 31-year-old single male who presented to the psychiatric unit voluntarily at the behest of his mother.. He was unable to provide a coherent reason for hospitalization. When I asked about the issues that brought him to the hospital he began talking about his relationship he had with a girlfriend. On further inquiry this incident occurred 7 years ago. He was lively and animated. On many occasions he acted out his story (he was talking about interaction with his girlfriend's or ex- girlfriend's children and began jumping up and down, squatting to the ground and eventually laid down on the ground). He gesticulated wildly with his hands. He was restless, grandiose and talked almost nonstop. He referred to "hearing voices" but when I asked question to clarify whether the experience represented true auditory hallucinations he backpedaled and alleged they were just thoughts. With his permission I called his mother. She stated that she slept last night for the first time in over a week. She stated they are a very spiritual family but he has taken spirituality to the extreme. "He takes after his father. ... I left (his father) when Caio was quite young." She believes that Caio's "mental illness came out" at the same age as his father's. "It's the same thing. ... He speaks in parables. He doesn't hear what others say." She was quite distressed and sobbed on the telephone. She stated that he has been calling her a liar and a thief. He told her that "the wolves" are coming to get her. She stated that his friends have been calling her concerned about his behavior. "He comes home and freaks out." He leaves her house then goes to his girlfriend's. She stated that he "freaked out" at his girlfriend's friend' s house. I asked her what she meant by "freaks out" and she talked about his restlessness, paranoia and religiosity. She stated that he's been talking about "devils" and "minions". He believes that demons are controlling her mind. He talks about being "thrown to the demons." His mother stated that he had not slept for 4 days. She noticed a change in his behavior about 2 weeks prior to admission. She talked about having become involved with drugs and believes that the drugs "brought it out in him." He accused her of stealing his drugs. She believes she was using LSD "blotter acid". After my conversation with his mother we met to talk about beginning a psychotropic medication. He became distressed and insists that they come to his room and "read what is on the wall. .. I did not put it there but I want you to read it " I accompanied him to his room and around the mirror someone had written their feelings about having been "forced" to take an injection of medication. He stated that he will not be "forced" to take medications. I explained that only a county judge's order would allow us to administer medication against a patient's wishes. He replied "just do it. ... Let's go to court." He stated that he has used "every drug imaginable" including alcohol, marijuana , LSD, mushrooms, opioid pain medications, cocaine, crack cocaine, methamphetamine and dextromethorphan. He has insufflated and injected heroin IV. He alleged last time he used heroin was "a while ago". His urine drug screen was positive only for marijuana. He received substance abuse treatment while he was in [facility]. We admitted him voluntarily to the psychiatric unit under the care of this ticket writer. We provided a biopsychosocial assessment. The microsoft infrastructure consultant robotics engineer completed the initial physical exam and medical history. The robotics engineer diagnosis included hyperkalemia, marijuana abuse, polysubstance abuse, nicotine dependence and history of alcohol use. The admission potassium was 5.5 and repeat the following day was 4.9. He slept a total of 22 hours during first 14 days for admission. He played classic signs and symptoms of rolo/hypomania during the initial phase of this hospitalization including restlessness, irritability, rapid speech, flight of ideas, grandiosity, decreased need for sleep and increased energy. During this 60 day hospitalization he had only one episode of agitation that required administration of lorazepam 1 mg by mouth for his agitation. He did not require administration of intramuscular lorazepam or oral or intramuscular ziprasidone. He refused to consent to a psychotropic medication. We therefore proceeded with an application for involuntary hospitalization. The social media campaign manager completed the Petition and we submitted the Petition with to clinical certificate to probate Court. He would not defer to the treatment order. This was a prolonged hospitalization because he dismissed his court appointed patent prosecution attorney and hired a attorney recruiter to represent him in probate court. He demanded an independent evaluation then a jury trial. The court hearing was postponed several times because he hired a private patent prosecution attorney and his patent prosecution attorney was unable to schedule an independent evaluation. His overall level of agitation decreased were over the last 30 days of hospitalization to where he was sleeping between 4 and 6 hours per night and over the last 2 weeks prior to admission 5-6 hours per night. He has an underlying level of paranoia and repeatedly expressed a belief that his rights have been violated. He submitted numerous recipient rights complaints none of which were found to have merit. At the jury trial he waived his right for the jury trial. He waived his right to hear testimony from his attending psychiatrist and stipulated to a treatment order with the understanding that we would discharge him today. The county judge clearly explains that if he does not follow through with outpatient treatment, he would be laced in protective custody, rehospitalized and administered medications as deemed appropriate by the treating psychiatrist. At the time of discharge she denied psychotic symptoms such as auditory or visual hallucinations, ideas reference, thought insertion, thought broadcasting or thought control. He denied suicidal ideation or wishes. He denied homicidal ideation. His affect was elevated. He was not agitated or restless. Patient Condition at Discharge: Stable Plan - Discharge Summary Discharge Medication List No Known Home Medications [No Known Home Medications] 01/19/17 [History] Follow up Appointment(s)/Referral(s): Yanick Greene [Outside] - 1 Week (03/23/17 at 11 am with Joseph Burleson) None,Stated [Primary Care Provider] - 1-2 days Patient Instructions/Handouts: Bipolar Disorder (DC), Brief Psychotic Disorder (DC), Hallucinations (DC) Activity/Diet/Wound Care/Special Instructions: activity and diet as tolerated. no guns or weapons in the home. please attend all follow up appointments as ordered. no drugs or alcohol not ordered by physician. please return to the [facility] if symptoms worsen. Discharge Disposition: HOME SELF-CARE
== END 2017-03-20 10:53 | disposition home or self-care (01) | DRG 885 ==
LOC: EC 10:36 → 3MHU 15:57
PROVIDERS: ADMIT Psychiatry & Neurology Psychiatry; ATTEND Psychiatry & Neurology Psychiatry
DX: F31.0 Bipolar disorder, current episode hypomanic (principal); E87.5 Hyperkalemia; F16.10 Hallucinogen abuse, uncomplicated; F11.10 Opioid abuse, uncomplicated; F12.10 Cannabis abuse, uncomplicated; F17.200 Nicotine dependence, unspecified, uncomplicated; K59.00 Constipation, unspecified; Z91.19 Patient's noncompliance with other medical treatment and regimen; Z59.9 Problem related to housing and economic circumstances, unspecified; Z81.3 Family history of other psychoactive substance abuse and dependence; Z81.8 Family history of other mental and behavioral disorders
CPT/HCPCS: 80048; 80053; 80306; 81001; 82075; 84443; 85025; 87502; 99285

== ENCOUNTER 2020-06-21 13:24 | Emergency (ER) | payer MEDICAID, OTHER ==
[2020-06-21 13:34] VITALS: BP 116/65; PULSE 89; RESP 20; TEMP 98.2
--- NOTE | 2020-06-21 13:53 | ED ---
ENT HPI - General Chief complaint: ENT Stated complaint: ringing in ear Time Seen by Provider: 06/21/20 13:45 Source: patient, RN notes reviewed, old records reviewed Mode of arrival: ambulatory Limitations: no limitations - History of Present Illness Initial comments: 34-year-old male presents for instructed for concern for ringing in the right ear for the past 2 days. He reports symptoms are related to after using a hand saw. He does not realize this until questioned on if he was around loud noises. Denies any right ear pain. Denies any dizziness. He states it feels like a persistent ringing in the ears, right worse than left. - Related Data Home Medications Medication Instructions Recorded Confirmed No Known Home Medications 01/19/17 01/19/17 Allergies Allergy/AdvReac Type Severity Reaction Status Date / Time No Known Allergies Allergy Verified 06/21/20 13:34 Review of Systems ROS Statement: Those systems with pertinent positive or pertinent negative responses have been documented in the HPI. ROS Other: All systems not noted in ROS Statement are negative. Past Medical History Past Medical History: No Reported History Additional Past Medical History / Comment(s): History of heart palpitations. History of Any Multi-Drug Resistant Organisms: None Reported Past Surgical History: No Surgical Hx Reported Past Anesthesia/Blood Transfusion Reactions: No Reported Reaction Past Psychological History: No Psychological Hx Reported Smoking Status: Former smoker, Vaper Past Alcohol Use History: Daily Past Drug Use History: Cocaine, Heroin, IV Drug Use, Marijuana, Methamphetamine, Opiates, Prescription Drug Abuse - Past Family History Father History Unknown: Yes Mother Family Medical History: Diabetes Mellitus, Hyperlipidemia Brother(s) Additional Family Medical History / Comment(s): Drug addiction. General Exam - General Exam Comments Initial Comments: 44-year-old male. Alert and oriented. No distress. Limitations: no limitations Head exam: Present: atraumatic, normocephalic, normal inspection Eye exam: Present: normal appearance, PERRL, EOMI. Absent: scleral icterus, conjunctival injection, periorbital swelling ENT exam: Present: normal exam, mucous membranes moist, other (No nystagmus. TMs are intact. External auditory canals clear with no signs of cerumen impaction. Patient has no mastoid or preauricular tenderness) Neck exam: Present: normal inspection. Absent: tenderness, meningismus, lymphadenopathy Respiratory exam: Present: normal lung sounds bilaterally. Absent: respiratory distress, wheezes, rales, rhonchi, stridor Cardiovascular Exam: Present: regular rate, normal rhythm, normal heart sounds. Absent: systolic murmur, diastolic murmur, rubs, gallop, clicks Back exam: Present: normal inspection Neurological exam: Present: alert, oriented X3, CN II-XII intact Psychiatric exam: Present: normal affect, normal mood Skin exam: Present: warm, dry, intact, normal color. Absent: rash Course Vital Signs 06/21/20 13:32 Temperature 98.2 F Pulse Rate 89 Respiratory 20 Rate Blood Pressure 116/65 O2 Sat by Pulse 99 Oximetry Medical Decision Making - Medical Decision Making Patient is a 34-year-old who presents with tinnitus in the right ear after using a loud handsaw 2 days ago. Patient reports is persistent. He did not correlate the tinnitus associated with using a handsaw to cause the symptoms. TMs are intact. No signs of cerumen in each external auditory canal. Discussed that this could be a persistent problem but to avoid any further on noises and use earplugs is discussed. Patient understands treatment plan will comply. Given information for ENT if symptoms continue to persist or for other further treatment plans Disposition Clinical Impression: Tinnitus, left ear Disposition: HOME SELF-CARE Condition: Good Instructions (If sedation given, give patient instructions): Tinnitus (ED) Additional Instructions: Patient advised to avoid exposure to loud repeated noises for the next few weeks. Use earplugs if needed if being around loud noises. If symptoms continu e to persist follow-up with ENT. He also can use decongestant medication that may help with symptoms. Is patient prescribed a controlled substance at d/c from ED?: No Referrals: None,Stated [Primary Care Provider] - 1-2 days Zion Hoyos DO [Doctor of Osteopathic Medicine] - 1-2 days Time of Disposition: 13:53
== END 2020-06-21 14:07 | disposition home or self-care (01) ==
LOC: EC 13:24
DX: H93.12 Tinnitus, left ear (principal); Z87.891 Personal history of nicotine dependence
CPT/HCPCS: 99284

== ENCOUNTER 2020-07-13 17:34 | Emergency (ER) | payer OTHER ==
[2020-07-13 18:00] VITALS: RESP 18
[2020-07-13] MEDS ORDERED: DIPH,PERTUS(ACELL)TETVAC-LF 0.5 ML VIAL IM ONE (18:07)
--- NOTE | 2020-07-13 18:15 | ED ---
Upper Extremity HPI - General Chief Complaint: Extremity Injury, Upper Stated Complaint: Thumb injury Time Seen by Provider: 07/13/20 18:01 Source: patient, RN notes reviewed Mode of arrival: ambulatory Limitations: no limitations - History of Present Illness Initial Comments: This a 34-year-old male presents to the emergency Department with chief compl aint of puncture wound to right hand thumb. Patient states that he shot a nail into his thumb which Dr. Raya did not penetrate through. Patient states he was able to remove it without difficulty. He is unsure when his last tetanus was in is requesting tenderness. Denies any paresthesias no decrease range of no weakness. - Related Data Previous Rx's Medication Instructions Recorded Cephalexin [Keflex] 500 mg PO Q6HR #28 cap 07/13/20 Allergies Allergy/AdvReac Type Severity Reaction Status Date / Time No Known Allergies Allergy Verified 07/13/20 18:00 Review of Systems ROS Statement: Those systems with pertinent positive or pertinent negative responses have been documented in the HPI. ROS Other: All systems not noted in ROS Statement are negative. Past Medical History Past Medical History: No Reported History Additional Past Medical History / Comment(s): History of heart palpitations. History of Any Multi-Drug Resistant Organisms: None Reported Past Surgical History: No Surgical Hx Reported Past Anesthesia/Blood Transfusion Reactions: No Reported Reaction Past Psychological History: No Psychological Hx Reported Smoking Status: Current every day smoker, Vaper Past Alcohol Use History: Daily Past Drug Use History: Cocaine, Heroin, IV Drug Use, Marijuana, Methamphetamine, Opiates, Prescription Drug Abuse - Past Family History Father History Unknown: Yes Mother Family Medical History: Diabetes Mellitus, Hyperlipidemia Brother(s) Additional Family Medical History / Comment(s): Drug addiction. General Exam Limitations: no limitations General appearance: alert, in no apparent distress Neck exam: Present: normal inspection, full ROM. Absent: tenderness, meningismus, lymphadenopathy Respiratory exam: Present: normal lung sounds bilaterally. Absent: respiratory distress, wheezes, rales, rhonchi, stridor Cardiovascular Exam: Present: regular rate, normal rhythm, normal heart sounds. Absent: systolic murmur, diastolic murmur, rubs, gallop, clicks Extremities exam: Present: other (Right thumb there is a puncture wound just distal to the MCP region chest for range of motion neurovascular intact there is no active bleeding full-strength) Skin exam: Present: warm, dry, intact, normal color. Absent: rash Course Vital Signs 07/13/20 17:58 Temperature 98.2 F Pulse Rate 68 Respiratory 18 Rate Blood Pressure 126/68 O2 Sat by Pulse 97 Oximetry Medical Decision Making - Medical Decision Making Patient presented for thumb injury x-ray shows possible chip defect were bony injury happened. Patient will be provided oral antibiotics tetanus is updated. Patient be discharged and stable condition. Disposition Clinical Impression: Puncture wound of finger of right hand, Fracture of thumb, right open Disposition: HOME SELF-CARE Condition: Stable Instructions (If sedation given, give patient instructions): Puncture Wound (ED) Additional Instructions: Please return to the Emergency Department if symptoms worsen or any other concerns. Prescriptions: Cephalexin [Keflex] 500 mg PO Q6HR #28 cap Is patient prescribed a controlled substance at d/c from ED?: No Referrals: None,Stated [Primary Care Provider] - 1-2 days Time of Disposition: 18:35
[2020-07-13] MEDS ORDERED: CEPHALEXIN 500MG STARTER PACK 4 CAP BTL PO STA (18:32)
--- NOTE | 2020-07-13 18:44 | XR ---
EXAMINATION TYPE: XR finger RT DATE OF EXAM: 07/13/2020 COMPARISON: None HISTORY: Nail in thumb TECHNIQUE: 3 view right thumb FINDINGS: There is subtle elevation of the posterior cortex of the proximal phalanx right thumb on th e lateral projection. Fracture is not otherwise evident. Soft tissues appear normal. Radiopaque forei gn body is not identified. IMPRESSION: 1. Suspected subtle puncture fracture of the proximal dorsal phalanx right thumb.
[2020-07-13 19:04] VITALS: BP 122/87; PULSE 63; TEMP 97.4
== END 2020-07-13 19:04 | disposition home or self-care (01) ==
LOC: EC 17:34
DX: S62.511B Displaced fracture of proximal phalanx of right thumb, initial encounter for open fracture (principal); Z23 Encounter for immunization; F17.290 Nicotine dependence, other tobacco product, uncomplicated; W29.4XXA Contact with nail gun, initial encounter; Y93.89 Activity, other specified
CPT/HCPCS: 90471; 90715; 99283

== ENCOUNTER 2020-12-01 14:24 | Emergency (ER) | payer OTHER ==
[2020-12-01 14:28] VITALS: BP 130/61; PULSE 64; RESP 18; TEMP 98.6
--- NOTE | 2020-12-01 14:50 | ED ---
ENT HPI - General Chief complaint: Dental/Oral Stated complaint: Dental Pain Time Seen by Provider: 12/01/20 14:33 Source: patient Mode of arrival: ambulatory Limitations: no limitations - History of Present Illness Initial comments: Patient is a 34-year-old male presenting to emergency Department with complaints of left-sided dental pain increasing over the past couple weeks. Patient states he's had dental abscesses in the past and does not want this to get any worse. He states he doesn't appointment with his dentist in a few weeks to take care of the teeth. Patient denies any fever or chills, no nausea or vomiting, no abdominal pain. He denies any facial swelling, no other complaints at this time. Upon arrival to ER, his vital signs are stable. - Related Data Previous Rx's Medication Instructions Recorded Cephalexin [Keflex] 500 mg PO Q6HR #28 cap 07/13/20 Penicillin V Potassium [Pen Vee K] 500 mg PO QID #40 tablet 12/01/20 Allergies Allergy/AdvReac Type Severity Reaction Status Date / Time No Known Allergies Allergy Verified 12/01/20 14:28 Review of Systems ROS Statement: Those systems with pertinent positive or pertinent negative responses have been documented in the HPI. ROS Other: All systems not noted in ROS Statement are negative. Past Medical History Past Medical History: No Reported History Additional Past Medical History / Comment(s): History of heart palpitations. History of Any Multi-Drug Resistant Organisms: None Reported Past Surgical History: No Surgical Hx Reported Past Anesthesia/Blood Transfusion Reactions: No Reported Reaction Past Psychological History: No Psychological Hx Reported Smoking Status: Current every day smoker, Vaper Past Alcohol Use History: Daily Past Drug Use History: Cocaine, Heroin, IV Drug Use, Marijuana, Methamphetamine, Opiates, Prescription Drug Abuse - Past Family History Father History Unknown: Yes Mother Family Medical History: Diabetes Mellitus, Hyperlipidemia Brother(s) Additional Family Medical History / Comment(s): Drug addiction. General Exam - General Exam Comments Initial Comments: GENERAL: Patient is well-developed and well-nourished. Patient is nontoxic and in no acute distress. HEAD: Atraumatic, normocephalic. EYES: Pupils equal round and reactive to light, extraocular movements intact, sclera anicteric, conjunctiva are normal. Eyelids were unremarkable. ENT: TMs normal, nares patent, oropharynx clear without exudates. Moist mucous membranes. Pain along tooth #12 and missing tooth #20. No visible abscesses seen, there is some mild erythema along the gumline. No facial swelling present. NECK: Normal range of motion, supple without lymphadenopathy or JVD. LUNGS: Unlabored respirations. Breath sounds clear to auscultation bilaterally and equal. No wheezes rales or rhonchi. HEART: Regular rate and rhythm without murmurs, rubs or gallops. ABDOMEN: Soft, nontender, normoactive bowel sounds. No guarding, no rebound. No masses appreciated. : Deferred MUSCULOSKELETAL: Normal extremities with adequate strength and normal range of motion, no pitting or edema. No clubbing or cyanosis. NEUROLOGICAL: Patient is alert and oriented x 3. Symmetrical smile. Normal speech, normal gait. PSYCH: Normal mood, normal affect. SKIN: Warm, Dry, normal turgor, no rashes or lesions noted. Limitations: no limitations Course Vital Signs 12/01/20 14:26 Temperature 98.6 F Pulse Rate 64 Respiratory 18 Rate Blood Pressure 130/61 O2 Sat by Pulse 99 Oximetry Medical Decision Making - Medical Decision Making Patient is a 34-year-old male here for left-sided dental pain has been increasing over the past couple weeks. His vital signs are stable, is afebrile. He has no facial swelling, no visible dental abscess seen. Patient will be started on penicillin for possible dental infection. He does have an appointment with his dentist the next few weeks. He is stable for discharge. Return parameters were discussed with the patient he verbalizes understanding. Disposition Clinical Impression: Toothache Disposition: HOME SELF-CARE Condition: Stable Instructions (If sedation given, give patient instructions): Toothache (ED) Additional Instructions: Please return to the Emergency Department if symptoms worsen or any other concerns. Take antibiotic as prescribed. Alternating Tylenol and Motrin for any discomfort. Follow-up with your dentist. Prescriptions: Penicillin V Potassium [Pen Vee K] 500 mg PO QID #40 tablet Is patient prescribed a controlled substance at d/c from ED?: No Referrals: None,Stated [Primary Care Provider] - 1-2 days
== END 2020-12-01 14:55 | disposition home or self-care (01) ==
LOC: EC 14:24
DX: K08.89 Other specified disorders of teeth and supporting structures (principal); F17.290 Nicotine dependence, other tobacco product, uncomplicated
CPT/HCPCS: 99282